=== PATIENT | male | born 1945 | race Caucasian/White ===

== ENCOUNTER 2019-12-18 10:39 | Outpatient (REF) | payer MEDICARE, SELFPAY ==
[2019-12-18 11:59] LABS: MANUAL DIFF FLAG NO
[2019-12-18 12:10] LABS: Basophils Percent Auto 0.9 % (0-2); Eosinophils Absolute Auto 0.2 X10*3/uL (0.0-0.4); Eosinophils Percent Auto 4.9 % (0-4); Hematocrit 43.8 % (42-52); Hemoglobin 14.3 g/dl (14.0-18.0); Lymphocytes Absolute Auto 1.4 X10*3/uL (1.2-4.9); Lymphocytes Percent Auto 29.2 % (20-40); Mean Corpuscular HGB Conc 32.6 g/dl (31.0-36.0); Mean Corpuscular Hemoglobin 28.9 pg (27.0-33.0); Mean Corpuscular Volume 88.5 fL (80-98); Mean Platelet Volume 11.2 fL (9.4-12.4); Monocytes Absolute Auto 0.3 X10*3/uL (0.1-1.2); Monocytes Percent Auto 7.1 % (2-11); Neutrophils Absolute Auto 2.7 X10*3/uL (2.0-8.3); Neutrophils Percent Auto 57.9 % (45-73); Platelet Count 169 X10*3/uL (160-400); Red Blood Count 4.95 X10*6/uL (4.60-5.80); Red Cell Distribution Width 14.7 % (11.0-16.0); White Blood Count 4.7 X10*3/uL (4.8-10.8)
[2019-12-18 12:14] LABS: Glucose Urine UA NEG (NEG); Leukocyte Esterase Urine NEG (NEG); Nitrite Urine NEG (NEG); Urine Blood NEG (NEG); Urine Ketones NEG (NEG); Urine Protein NEG (NEG-TRACE)
[2019-12-18 12:17] LABS: Appearance Urine CLEAR; Color Urine YELLOW
[2019-12-18 12:28] LABS: RBC Urine 0 /HPF (0); WBC Urine 0 /HPF (0-4)
[2019-12-18 12:38] LABS: Creatinine Urine 49.72 mg/dL; Microalbum/Creatinine Ratio Ur 235.3 ug/mg cr
[2019-12-18 12:44] LABS: Estimated Average Glucose 108 mg/dL; Hemoglobin A1c % 5.4 %
[2019-12-18 12:57] LABS: Prostate Specific Antigen 0.33 ng/mL (<0.05-4.0)
[2019-12-18 12:58] LABS: Alanine Aminotransferase 21 U/L (0-40); Albumin Level 4.2 g/dL (3.5-5.0); Alkaline Phosphatase 80 U/L (39-117); Anion Gap 12 (12-20); Aspartate Amino Transferase 22 U/L (5-37); Bilirubin Total 0.8 mg/dL (0.0-1.0); Blood Urea Nitrogen 19 mg/dL (9-16); Calcium 9.2 mg/dL (8.4-10.2); Carbon Dioxide 24 mmol/L (22-29); Chloride 106 mmol/L (96-108); Cholesterol 169 mg/dL; Estimated Glomerular Filt Rate > 60; Glucose Fasting 82 mg/dL (60-99); HDL Cholesterol 68 mg/dL; LDL Cholesterol Calculated 86 mg/dl; Potassium 4.3 mmol/l (3.3-5.1); Sodium 138 mmol/L (135-145); Thyroid Stimulating Hormone 2.05 mIU/mL (0.32-4.0); Total Protein 6.9 g/dL (6.5-8.0); Triglycerides 76 mg/dL
== END 2019-12-18 10:40 | disposition home or self-care (01) ==
LOC: HO.LAB 10:39
PROVIDERS: PCP Internal Medicine; Visit Provider Urology
DX: N20.0 Calculus of kidney (principal); I44.2 Atrioventricular block, complete; E11.9 Type 2 diabetes mellitus without complications; I10 Essential (primary) hypertension; G47.33 Obstructive sleep apnea (adult) (pediatric); N21.0 Calculus in bladder; E03.9 Hypothyroidism, unspecified; Z12.5 Encounter for screening for malignant neoplasm of prostate
CPT/HCPCS: 36415; 80053; 80061; 81001; 82043; 83036; 84153; 84443; 85025

== ENCOUNTER 2020-04-10 09:29 | Outpatient (REF) | payer MEDICARE, SELFPAY ==
[2020-04-10 11:57] LABS: Alanine Aminotransferase 19 U/L (0-40); Albumin Level 4.2 g/dL (3.5-5.0); Alkaline Phosphatase 76 U/L (39-117); Anion Gap 13 (12-20); Aspartate Amino Transferase 21 U/L (5-37); Bilirubin Total 0.5 mg/dL (0.0-1.0); Blood Urea Nitrogen 24 mg/dL (9-16); Calcium 9.4 mg/dL (8.4-10.2); Carbon Dioxide 26 mmol/L (22-29); Chloride 104 mmol/L (96-108); Cholesterol 132 mg/dL; Estimated Glomerular Filt Rate > 60; Glucose Fasting 90 mg/dL (60-99); HDL Cholesterol 66 mg/dL; LDL Cholesterol Calculated 56 mg/dl; Potassium 4.6 mmol/L (3.3-5.1); Sodium 138 mmol/L (135-145); Total Protein 6.8 g/dL (6.5-8.0); Triglycerides 54 mg/dL
[2020-04-10 12:05] LABS: Creatinine Urine 62.16 mg/dL
[2020-04-10 13:03] LABS: Estimated Average Glucose 108 mg/dL; Hemoglobin A1c % 5.4 %
== END 2020-04-10 09:30 | disposition home or self-care (01) ==
LOC: HO.HMGCLDS 09:29
PROVIDERS: PCP Internal Medicine; Visit Provider Internal Medicine
DX: E11.9 Type 2 diabetes mellitus without complications (principal); I10 Essential (primary) hypertension; E03.9 Hypothyroidism, unspecified; N21.0 Calculus in bladder
CPT/HCPCS: 36415; 80053; 80061; 82043; 83036

== ENCOUNTER → 2020-04-15 12:39 | Outpatient (BNVA) | payer MEDICARE, SELFPAY | PROVIDERS: PCP Internal Medicine; Visit Provider Internal Medicine Cardiovascular Disease | DX: I45.10 Unspecified right bundle-branch block (principal); I44.2 Atrioventricular block, complete; I10 Essential (primary) hypertension; Z95.0 Presence of cardiac pacemaker | CPT/HCPCS: 93005; 99212 ==

== ENCOUNTER → 2020-10-01 13:57 | Outpatient (BNVA) | payer OTHER, SELFPAY | PROVIDERS: PCP Internal Medicine; Visit Provider Internal Medicine Cardiovascular Disease | DX: I45.10 Unspecified right bundle-branch block (principal); I10 Essential (primary) hypertension; Z95.0 Presence of cardiac pacemaker | CPT/HCPCS: 93005; 99212 ==

== ENCOUNTER 2021-01-14 10:28 | Outpatient (REF) | payer MEDICARE, SELFPAY ==
[2021-01-14 13:49] LABS: Appearance Urine CLOUDY; Color Urine STRAW; Glucose Urine UA NEG (NEG); Leukocyte Esterase Urine NEG (NEG); Nitrite Urine NEG (NEG); PH 5.5 (5.0-8.0); Specific Gravity - Urine 1.025 (1.005-1.025); Urine Blood NEG (NEG); Urine Ketones NEG (NEG); Urine Protein 1+ MG/DL (NEG-TRACE)
[2021-01-14 13:58] LABS: MANUAL DIFF FLAG NO
[2021-01-14 14:00] LABS: RBC Urine 0 /HPF (0); Squamous Epithelial Cell Urine TRACE /LPF; WBC Urine 0 /HPF (0-4)
[2021-01-14 14:01] LABS: Amorphous Sediment Urine 4+ /LPF
[2021-01-14 14:03] LABS: Basophils Absolute Auto 0.1 X10*3/uL (0.0-0.2); Eosinophils Absolute Auto 0.2 X10*3/uL (0.0-0.4); Hematocrit 43.4 % (42.0-52.0); Hemoglobin 14.1 g/dl (14.0-18.0); Imm Gran Abs Auto 0.01 X10*3/uL (0.00-0.03); Imm Gran Pct Auto 0.2 % (0.0-0.4); Lymphocytes Absolute Auto 1.5 X10*3/uL (1.2-4.9); Lymphocytes Percent Auto 28.9 % (20-40); Mean Corpuscular HGB Conc 32.5 g/dl (31.0-36.0); Mean Corpuscular Hemoglobin 28.8 pg (27.0-33.0); Mean Corpuscular Volume 88.8 fL (80.0-98.0); Mean Platelet Volume 11.8 fL (9.4-12.4); Monocytes Absolute Auto 0.5 X10*3/uL (0.1-1.2); Monocytes Percent Auto 8.7 % (2-11); Neutrophils Percent Auto 57.2 % (45-73); Platelet Count 161 X10*3/uL (160-400); Red Blood Count 4.89 X10*6/uL (4.60-5.80); Red Cell Distribution Width 14.6 % (11.0-16.0); White Blood Count 5.3 X10*3/uL (4.8-10.8)
[2021-01-14 14:13] LABS: Estimated Average Glucose 108 mg/dL; Hemoglobin A1c % 5.4 %
[2021-01-14 14:18] LABS: Alanine Aminotransferase 22 U/L (0-40); Albumin Level 4.5 g/dL (3.5-5.0); Alkaline Phosphatase 78 U/L (39-117); Anion Gap 11 (12-20); Aspartate Amino Transferase 21 U/L (5-37); Bilirubin Total 0.7 mg/dL (0.0-1.0); Blood Urea Nitrogen 26 mg/dL (9-16); Calcium 10.4 mg/dL (8.4-10.2); Carbon Dioxide 26 mmol/L (22-29); Chloride 106 mmol/L (96-108); Cholesterol 144 mg/dL; Estimated Glomerular Filt Rate 59; Glucose Fasting 97 mg/dL (60-99); HDL Cholesterol 71 mg/dL; LDL Cholesterol Calculated 61 mg/dl; Potassium 4.9 mmol/L (3.3-5.1); Sodium 138 mmol/L (135-145); Total Protein 7.2 g/dL (6.5-8.0); Triglycerides 64 mg/dL
[2021-01-14 14:24] LABS: Creatinine Urine 86.77 mg/dL; Microalbum/Creatinine Ratio Ur 215.5 ug/mg cr
[2021-01-14 14:42] LABS: Thyroid Stimulating Hormone 1.41 uIU/mL (0.32-4.0)
[2021-01-15 13:50] LABS: Free Prostate Spec Ag 0.1 ng/mL; Percent Free Prostate Spec Ag 33 % (calc) (>25); Prostate Specific Ag Total 0.3 ng/mL (< OR = 4.0)
== END 2021-01-14 10:29 | disposition home or self-care (01) ==
LOC: HO.HMGCLDS 10:28
PROVIDERS: PCP Internal Medicine; Visit Provider Internal Medicine
DX: E11.9 Type 2 diabetes mellitus without complications (principal); I10 Essential (primary) hypertension; E03.9 Hypothyroidism, unspecified; Z12.5 Encounter for screening for malignant neoplasm of prostate
CPT/HCPCS: 36415; 80053; 80061; 81001; 82043; 83036; 84154; 84443; 85025

== ENCOUNTER → 2021-04-05 10:03 | Outpatient (BNVA) | payer OTHER, SELFPAY | PROVIDERS: PCP Internal Medicine; Visit Provider Internal Medicine Cardiovascular Disease | DX: I44.2 Atrioventricular block, complete (principal); I45.10 Unspecified right bundle-branch block; I10 Essential (primary) hypertension; Z95.0 Presence of cardiac pacemaker | CPT/HCPCS: 93005 ==

== ENCOUNTER 2021-07-13 11:14 | Outpatient (REF) | payer MEDICARE, SELFPAY ==
[2021-07-13 12:46] LABS: Estimated Average Glucose 117 mg/dL; Hemoglobin A1c % 5.7 %
[2021-07-13 13:02] LABS: Alanine Aminotransferase 23 U/L (0-40); Albumin Level 4.3 g/dL (3.5-5.0); Alkaline Phosphatase 87 U/L (39-117); Anion Gap 15 (12-20); Aspartate Amino Transferase 21 U/L (5-37); Bilirubin Total 0.3 mg/dL (0.0-1.0); Blood Urea Nitrogen 23 mg/dL (9-16); Calcium 9.8 mg/dL (8.4-10.2); Carbon Dioxide 21 mmol/L (22-29); Chloride 106 mmol/L (96-108); Estimated Glomerular Filt Rate > 60; Glucose Fasting 102 mg/dL (60-99); Potassium 4.7 mmol/L (3.3-5.1); Sodium 137 mmol/L (135-145); Total Protein 6.9 g/dL (6.5-8.0)
== END 2021-07-13 11:15 | disposition home or self-care (01) ==
LOC: HO.LAB 11:14
PROVIDERS: Absent Provider Internal Medicine; PCP Internal Medicine; Visit Provider Internal Medicine
DX: Z00.00 Encounter for general adult medical examination without abnormal findings (principal); E11.9 Type 2 diabetes mellitus without complications; E03.9 Hypothyroidism, unspecified; I10 Essential (primary) hypertension
CPT/HCPCS: 36415; 80053; 83036

== ENCOUNTER → 2021-08-30 10:27 | Outpatient (REF) | payer MEDICARE, SELFPAY ==
--- NOTE | 2021-08-30 10:32 | CA_ITS ---
Transthoracic Echocardiogram Patient (Last, First, Middle): Pollo Arevalo A Gender: Male Date of : 1945 Age: 76 Procedure Date: 08/30/2021 Procedure Type: Transthoracic Echocardiogram Location: OP Height: 172.72 cm Weight: 89.36 kg BSA: 2.03 m2 Heart Rate: 64 bpm BP: 150 / 70 mmHg Conservation Officer: SB Referring MD: Flip Jain MD Symptoms: I44.2 - Atrioventricular block, complete Study Quality: Adequate ECG Rhythm: Sinus Conclusions: - The left ventricular systolic function is normal. The calculated ejection fraction is 57% by biplane method. - No obvious valvular pathology seen on this study. Findings Left Ventricle Normal left ventricular cavity size. There is moderately increased left ventricular wall thickness. The left ventricular systolic function is normal. The calculated ejection fraction is 57% by biplane method. There is no evidence of regional wall motion abnormalities. E/E prime ratio is >15, consistent with elevated filling pressures. Evidence suggests grade I (mild) diastolic dysfunction. Right Ventricle Normal right ventricular cavity size and systolic function. Atria Both atria are normal in size. Aortic Valve There is a normal trileaflet aortic valve. There is no aortic valve stenosis. There is no aortic valve regurgitation. Mitral Valve There is mild mitral annular calcification. There is no mitral valve regurgitation. There is no mitral valve stenosis. Pulmonic Valve The pulmonic valve is likely normal. Tricuspid Valve Normal tricuspid valve structure. There is trace tricuspid valve regurgitation. The pulmonary artery systolic pressure is normal. Great Vessels The asc aorta is normal in size. Small plaque is seen in the sino tubular ridge. Venous The inferior vena cava is normal in size and collapses greater than 50% with inspiration. Pericardium/Pleural There is no evidence of pericardial effusion. Prior Study Comparison No prior study available for comparison. Recommendations, Care & Conclusions No obvious valvular pathology seen on this study. Measurements 2D Linear Measurements IVSd: 1.45 0.6-0.9/0.6-1.0 cm LVIDd: 4.35 3.9-5.3/4.2-5.9 cm LVIDd Index: 2.14 2.4-3.2/2.2-3.1 cm/m2 LVIDs: 2.86 2.0-3.6 cm LVPWd: 1.29 0.7-1.1 cm LA Diam: 4.30 2.7-3.8/3.0-4.0 cm LAIDs Index: 2.12 1.5-2.3 cm/m2 LV Mass: 285.05 67-162/88-224 g LV Mass Index: 140.42 43-95/49-115 g/m2 LVOT Diam: 2.10 3.0+(-)1.3 cm 2D Systolic Function EF 4C: 65.50 >55% EF 2C: 47.30 >55% EF BiP: 57.00 >55% Mitral Valve MV Pk E: 0.78 MV PK A: 1.11 MV Decel Time: 329.00 E/A: 0.70 E'Lateral: 5.66 E'Medial: 4.03 E/E' Med: 19.50 E/E' Lat: 13.90 PHT: 96.00 MVA PHT: 2.29 Decel Amador: 2.38 Aortic Valve AoV Pk Ranjeet: 1.47 AoV Mn Ranjeet: 1.06 AoV VTI: 0.29 AoV Pk Grad: 9.00 Aov Mn Grad: 5.00 MICKEY Cont.VTI: 3.03 LVOT LVOT Pk Ranjeet: 1.20 LVOT Mn Ranjeet: 0.87 LVOT VTI: 0.25 LVOT Pk Grad: 6.00 LVOT Mn Grad: 4.00 LVOT Diam: 2.10 LVOT Area: 3.46 Diastolic Function MV Pk E: 0.78 MV Pk A: 1.11 E/A: 0.70 E'Medial: 4.03 E/E' Med: 19.50 E' Laterial: 5.66 E/E' Lat: 13.90 Right Ventricle TAPSE (mm): 20.30 TVS' Ranjeet: 9.70 Tricuspid Valve TR Pk Ranjeet: 2.32 TR Pk Grad: 22.00 RA Press: 3.00 RVSP: 25.00 Great Vessels Aorta Sinus of Valsalva: 3.50 2.0-3.5 cm Ao Asc: 3.40 2.1-3.4 cm Pulmonary Valve PV Pk Ranjeet: 1.18 Peak PV Grad: 6.00 Updated in Other Vendor System with Status of Final Kev Carlton MD electronically signed on 09/01/2021 5:28:05 PM with status of Final
== END ==
LOC: HO.CARD 10:27
PROVIDERS: PCP Internal Medicine; Visit Provider Internal Medicine Cardiovascular Disease
DX: I44.2 Atrioventricular block, complete (principal)
CPT/HCPCS: 93306

== ENCOUNTER → 2021-09-13 10:48 | Outpatient (BNVA) | payer MEDICARE, SELFPAY | PROVIDERS: PCP Internal Medicine; Referring Provider Internal Medicine; Visit Provider Internal Medicine Cardiovascular Disease | DX: I10 Essential (primary) hypertension (principal); I45.10 Unspecified right bundle-branch block; Z95.0 Presence of cardiac pacemaker | CPT/HCPCS: 93005; 99212 ==

== ENCOUNTER → 2022-03-24 10:52 | Outpatient (BNVA) | payer OTHER, SELFPAY | PROVIDERS: PCP Internal Medicine; Referring Provider Internal Medicine; Visit Provider Internal Medicine Cardiovascular Disease | DX: I10 Essential (primary) hypertension (principal); I44.2 Atrioventricular block, complete; Z87.891 Personal history of nicotine dependence; Z95.0 Presence of cardiac pacemaker | CPT/HCPCS: 99212 ==

== ENCOUNTER → 2022-09-07 11:07 | Outpatient (BNVA) | payer OTHER, SELFPAY | PROVIDERS: PCP Internal Medicine; Visit Provider Internal Medicine Cardiovascular Disease | DX: I45.2 Bifascicular block (principal); I10 Essential (primary) hypertension; E87.5 Hyperkalemia; Z95.0 Presence of cardiac pacemaker; Z79.82 Long term (current) use of aspirin; Z79.84 Long term (current) use of oral hypoglycemic drugs; Z79.899 Other long term (current) drug therapy | CPT/HCPCS: 93005; 99212 ==

== ENCOUNTER → 2022-10-03 23:59 | Outpatient (BNV) | payer OTHER, SELFPAY ==
--- NOTE | 2022-10-17 09:37 | MHC.OFFVIS ---
Intake Intake Visit Reasons: Remote Device Check- [place] [facility] Allergies lisinopril Allergy (Unknown, Verified 09/07/22 11:19) cough oxycodone Allergy (Unknown, Verified 09/07/22 11:19) urticaria PFSH Surgical History History of toe surgery Hx of colonoscopy Pacemaker Family History Mother Lung cancer Father Brain aneurysm Brother Prostate cancer Sister Diabetes Social History Alcohol intake: current Alcohol intake frequency: a few times a week Alcohol type: hard liquor Patient Tobacco Use Status: Former Tobacco user Quit Date: Years Smoked: 20+ Coding Level of Care Code Procedure Only Diagnoses
--- NOTE | 2022-10-25 20:40 | MHC.OFFVIS ---
Intake Intake Visit Reasons: Remote Device Check- [place] [facility] Allergies lisinopril Allergy (Unknown, Verified 09/07/22 11:19) cough oxycodone Allergy (Unknown, Verified 09/07/22 11:19) urticaria PFSH Surgical History History of toe surgery Hx of colonoscopy Pacemaker Family History Mother Lung cancer Father Brain aneurysm Brother Prostate cancer Sister Diabetes Social History Alcohol intake: current Alcohol intake frequency: a few times a week Alcohol type: hard liquor Patient Tobacco Use Status: Former Tobacco user Quit Date: Years Smoked: 20+ Office Procedures Cardiac Device Check Cardiac Device Check Details: PPM Good battery life No new alerts. 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 [id number] Cardiac Device Interrogation, pacemaker Procedure code (CPT) selection complete Assessment & Plan Assessment & Plan (1) Pacemaker: Code(s): Z95.0 - Presence of cardiac pacemaker Coding Level of Care Code Procedure Only Diagnoses Pacemaker Z95.0 CPT Codes Cardiac Device Check - Cardiac Device 12: [id number] Cardiac Device Interrogation, pacemaker ([id number])
== END ==
PROVIDERS: PCP Internal Medicine; Visit Provider Internal Medicine Cardiovascular Disease
DX: I44.2 Atrioventricular block, complete (principal); Z95.0 Presence of cardiac pacemaker
CPT/HCPCS: 93294

== ENCOUNTER → 2023-01-02 23:59 | Outpatient (BNV) | payer OTHER, SELFPAY ==
--- NOTE | 2023-01-05 11:54 | A.OFFVIS_ITS ---
Intake Intake Visit Reasons: Remote Device Check- [facility] Allergies lisinopril Allergy (Unknown, Verified 09/07/22 11:19) cough oxycodone Allergy (Unknown, Verified 09/07/22 11:19) urticaria PFSH Surgical History History of toe surgery Hx of colonoscopy Pacemaker Family History Mother Lung cancer Father Brain aneurysm Brother Prostate cancer Sister Diabetes Social History Alcohol intake: current Alcohol intake frequency: a few times a week Alcohol type: hard liquor Patient Tobacco Use Status: Former Tobacco user Quit Date: Years Smoked: 20+ Office Procedures Cardiac Device Check Cardiac Device Check Details: PPM Battery life 4 years. V-paced 100%. Episodes of PMT recorded in Nov and Dec. [id number] Cardiac Device Interrogation, pacemaker Procedure code (CPT) selection complete Assessment & Plan Assessment & Plan (1) Pacemaker: Code(s): Z95.0 - Presence of cardiac pacemaker Orders: Orders AMB Cardiac Device Follow-up 01/02/23 Z95.0 - Presence of cardiac pacemaker Coding Level of Care Code Procedure Only Diagnoses Pacemaker Z95.0 CPT Codes Cardiac Device Check - Cardiac Device 12: [id number] Cardiac Device In [facility], pacemaker ([id number])
== END ==
PROVIDERS: PCP Internal Medicine; Visit Provider Internal Medicine Cardiovascular Disease
DX: I44.2 Atrioventricular block, complete (principal); Z95.0 Presence of cardiac pacemaker
CPT/HCPCS: 93294

== ENCOUNTER 2023-01-23 10:50 | Outpatient (REF) | payer MEDICARE, SELFPAY ==
[2023-01-23 11:20] LABS: MANUAL DIFF FLAG NO
[2023-01-23 11:51] LABS: Basophils Percent Auto 0.5 % (0-2); Eosinophils Percent Auto 0.2 % (0-4); Hematocrit 43.1 % (42.0-52.0); Hemoglobin 13.9 g/dl (14.0-18.0); Imm Gran Abs Auto 0.02 X10*3/uL (0.00-0.03); Imm Gran Pct Auto 0.4 % (0.0-0.4); Lymphocytes Absolute Auto 0.6 X10*3/uL (1.2-4.9); Lymphocytes Percent Auto 10.2 % (20-40); Mean Corpuscular HGB Conc 32.3 g/dl (31.0-36.0); Mean Corpuscular Hemoglobin 29.3 pg (27.0-33.0); Mean Corpuscular Volume 90.9 fL (80.0-98.0); Mean Platelet Volume 11.2 fL (9.4-12.4); Monocytes Absolute Auto 0.5 X10*3/uL (0.1-1.2); Monocytes Percent Auto 8.4 % (2-11); Neutrophils Absolute Auto 4.4 x10*3/uL (2.0-8.3); Neutrophils Percent Auto 80.3 % (45-73); Platelet Count 156 X10*3/uL (160-400); Red Blood Count 4.74 X10*6/uL (4.60-5.80); Red Cell Distribution Width 13.2 % (11.0-16.0); White Blood Count 5.5 X10*3/uL (4.8-10.8)
[2023-01-23 11:58] LABS: Appearance Urine Clear; Color Urine Yellow; Glucose Urine UA Negative (Negative); Leukocyte Esterase Urine Negative (Negative); Nitrite Urine Negative (Negative); PH 5.5 (5.0-9.0); UMIC TRIGGER UA YES; Urine Blood Negative (Negative); Urine Ketones Negative (Negative); Urine Protein 100 (2+) mg/dL (Neg-Trace)
[2023-01-23 12:01] LABS: Bacteria Urine None Seen (None Seen); Hyaline Casts Urine 0-2 /LPF (0-2); RBC Urine 0-2 /HPF (0-2); Squamous Epithelial Cell Urine 0-2 /HPF (0-2); WBC Urine 0-5 /HPF (0-5)
[2023-01-23 12:23] LABS: Estimated Average Glucose 114 mg/dL; Hemoglobin A1c % 5.6 % (<6.0)
[2023-01-23 12:46] LABS: PSA,Total (Free>4and<10) 0.55 ng/mL (0.00-4.00)
[2023-01-23 12:56] LABS: Alanine Aminotransferase 30 U/L (0-40); Albumin Level 4.5 g/dL (3.5-5.0); Alkaline Phosphatase 78 U/L (39-117); Anion Gap 12 (12-20); Aspartate Amino Transferase 25 U/L (5-37); Bilirubin Total 0.5 mg/dL (0.0-1.0); Blood Urea Nitrogen 23 mg/dL (9-16); Calcium 9.9 mg/dL (8.4-10.2); Carbon Dioxide 23 mmol/L (22-29); Chloride 106 mmol/L (96-108); Cholesterol 125 mg/dL (<200); Estimated Glomerular Filt Rate 45; Glucose Fasting 125 mg/dL (60-99); HDL Cholesterol 56 mg/dL (>40); LDL Cholesterol Calculated 47 mg/dL (<100); Potassium 4.9 mmol/L (3.3-5.1); Sodium 136 mmol/L (135-145); Total Protein 7.5 g/dL (6.5-8.0); Triglycerides 111 mg/dL (<150)
[2023-01-23 12:59] LABS: Creatinine Urine 99.74 mg/dL; Microalbum/Creatinine Ratio Ur 290.7 ug/mg cr (<30)
[2023-01-23 13:16] LABS: Thyroid Stimulating Hormone 1.26 uIU/mL (0.32-4.0); Vitamin D 25-OH Total 38.6 ng/mL (>30)
== END 2023-01-23 10:51 | disposition home or self-care (01) ==
LOC: HO.LAB 10:50
PROVIDERS: PCP Internal Medicine; Visit Provider Internal Medicine
DX: Z00.00 Encounter for general adult medical examination without abnormal findings (principal); E11.9 Type 2 diabetes mellitus without complications; I10 Essential (primary) hypertension; E03.9 Hypothyroidism, unspecified; I44.2 Atrioventricular block, complete; N21.0 Calculus in bladder; Z12.5 Encounter for screening for malignant neoplasm of prostate
CPT/HCPCS: 36415; 80053; 80061; 81001; 82043; 82306; 82570; 83036; 84153; 84443; 85025

== ENCOUNTER 2023-02-06 11:24 | Outpatient (AMB) | payer OTHER, SELFPAY ==
[2023-02-06 11:48] VITALS: BMI 29.8
--- NOTE | 2023-02-06 11:48 | A.OFFVIS_ITS ---
Intake VS Expanded 02/06/23 11:48 02/15/23 11:05 Height 5 ft 8 in 5 ft 8 in Weight 196 lb 3.382 oz 196 lb BMI 29.8 29.8 Intake Visit Reasons: Hyperkalemia Allergies lisinopril Allergy (Unknown, Verified 09/07/22 11:19) cough oxycodone Allergy (Unknown, Verified 09/07/22 11:19) urticaria HPI Nutrition Presentation Details Pt presents for MNT for hyperkalemia. Pt was referred by Dr. Audra Jain, seed technician at [facility] [place] Pt reports he is increasing his intake of vegetables in his diet and this may be causing elevated K level Typical meal intake B: 2 cup glass of milk stir fried vegetables (mixed vegetables) 2 cup s with 1-2 potatoes home fried L: green salad with fruit and olive oil or Egyptian dressing, glass of milk D: lentil soup ,and rice , glass of milk snack on chips , fruit , crackers wth p.b fluids: water, milk , soup average 64 oz fluid/d protein foods: beans/legumes, milk (48 -55 g /day) vegetables> 6 serving/d fruits 2-3 /d starches > 10 serving/d physical activity: daily life activities CVL-Otgvpfd-Rz.Jeor Equation Height 5 ft 8 in Weight 196 lb Resting Metabolic Rate 1598.73 Calculated Activity Level Mild Activity Calories Needed to Maintain Weight 2198.25 Diagnosis Nutrition problem #1 altered nutrition labs As related to (etiology) #1 lack of nutrit education As evidenced by (sign/symptom) #1 no prior educ - nutri rec Most Recent Diabetes Results: Microalb/Creat Ratio 290.7 ug/mg cr (<30) H 01/23/23 Cholesterol 125 mg/dL (<200) 01/23/23 HDL Cholesterol 56 mg/dL (>40) 01/23/23 Triglycerides 111 mg/dL (<150) 01/23/23 Creatinine 1.52 mg/dL (0.5-1.4) H 01/23/23 Blood Urea Nitrogen 23 mg/dL (9-16) H 01/23/23 Sodium 136 mmol/L (135-145) 01/23/23 Potassium 4.9 mmol/L (3.3-5.1) 01/23/23 Chloride 106 mmol/L (96-108) 01/23/23 Carbon Dioxide 23 mmol/L (22-29) 01/23/23 Calcium 9.9 mg/dL (8.4-10.2) 01/23/23 AST 25 U/L (5-37) 01/23/23 ALT 30 U/L (0-40) 01/23/23 Total Protein 7.5 g/dL (6.5-8.0) 01/23/23 Albumin 4.5 g/dL (3.5-5.0) 01/23/23 PFSH Surgical History History of toe surgery Hx of colonoscopy Pacemaker Family History Mother Lung cancer Father Brain aneurysm Brother Prostate cancer Sister Diabetes Social History Alcohol intake: current Alcohol intake frequency: a few times a week Alcohol type: hard liquor Patient Tobacco Use Status: Former Tobacco user Quit Date: Years Smoked: 20+ Assessment & Plan Assessment & Plan (1) Hyperkalemia: Code(s): E87.5 - Hyperkalemia Plan: wt: 89 kg Est kcal needs as per MSJ: 2200 (40% carb, 30% protein/fat) Est fluid needs as per 30 ml/d: 2700 Est prot per day as per 1 g/kg bw: 89g Recommend fiber intake : 8-10 g per day and gradually increase to 25-28 g per day for women and 35-38 g for men or as tolerated Recommend sodium intake per day : less than 2000 mg Educated patient on: ( R = reviewed V = verbalizes understanding N/R = needs review N/A = not applicable * Healthy plate method concept: R * Variety of foods /foods choices: R * low potassium sources of foods :R * lean protein sources of foods (plant/animal sources) : R * Physical activity: Benefits a precaution: R Patient Instructions: Work on having 3 balanced meals per day following healthy plate method, Include a variety of foods Example : include lean protein at breakfast ( 2 boiled eggs as example) , reduce on portion of the vegetables (starchy and non starchy) by 1/2 cup less see meal ideas, incorporating a variety of foods following the healthy plate method Refer to list of low potassium food choices as reference Coding Level of Care Code Nutr Indiv Intake (10329) Diagnoses Hyperkalemia E87.5 Time Spent (min) 30
[2023-02-15 11:05] VITALS: BMI 29.8
== END 2023-02-06 12:27 | disposition home or self-care (01) ==
PROVIDERS: PCP Internal Medicine; Visit Provider Dietitian, Registered
DX: E87.5 Hyperkalemia (principal)

== ENCOUNTER → 2023-02-06 11:24 | Outpatient (BNVA) | payer OTHER, SELFPAY | PROVIDERS: PCP Internal Medicine; Visit Provider Dietitian, Registered | DX: E87.5 Hyperkalemia (principal); Z71.3 Dietary counseling and surveillance | CPT/HCPCS: 97802 ==

== ENCOUNTER 2023-03-13 10:41 | Outpatient (AMB) | payer OTHER, SELFPAY ==
[2023-03-13 11:09] VITALS: BP 124/72; PULSE 70; BMI 29.9
--- NOTE | 2023-03-13 11:09 | MHC.OFFVIS ---
Intake Vital Signs 03/13/23 11:09 Height 5 ft 8 in Weight 196 lb 10.437 oz BMI 29.9 BP 124/72 Blood Pressure Location Lt brachial Position Sitting Pulse 70 Pulse Source Pulse Oximeter Intake Visit Reasons: 6 mth f/up [place] Hand Required: No Allergies lisinopril Allergy (Unknown, Verified 03/13/23 11:12) cough oxycodone Allergy (Unknown, Verified 03/13/23 11:12) urticaria Medication List - Last Reconciled 03/13/23 by Flip Jain MD amlodipine 5 mg PO DAILY aspirin (Adult Low Dose Aspirin) 81 mg PO DAILY clobetasol 0.05% 1 appl topical DAILY finasteride 5 mg PO DAILY levothyroxine 50 mcg PO DAILY losartan 100 mg PO DAILY metformin 1,000 mg PO BID naproxen 250 mg PO BID PRN rosuvastatin 40 mg PO DAILY spironolactone 12.5 mg PO DAILY tamsulosin 0.4 mg PO DAILY vitamins A,C,W-mojh-esspio 4,296 mcg-226 mg-90 mg (PreserVision AREDS) 1 cap PO BID HPI HPI Comments History of Present Illness Details 77-year-old gentleman here for follow-up. He has background history of hypertension and complete heart block for which he had permanent pacemaker placed at [facility]. He was also diagnosed with Lyme disease and was told that potentially the heart block was due to Lyme disease. He continues to do well. He has no chest discomfort. Denies any dyspnea. Blood pressure control is good. Last device check he was 100 % V-paced. 09/07/22: He is here for follow-up. He has been active and has no exertional symptoms. He has been adjusting his diet because he had blood workup done at [facility] where his potassium was noticed to be initially 5.2 and then 4.5. He has been taking losartan 100 mg and spironolactone 12.5 mg once a day. He is saying his diet includes a lot of vegetables and fruits and significant potassium intake. He feels that changing his diet will be a problem and is asking whether he can be referred to a dietitian. I have reviewed his medications and obviously being on spironolactone and losartan can raise the potassium. His potassium was 5.2 and repeat was 4.5. 03/13/2023: He returns for follow-up. On last visit he was advised to stop the spironolactone given the fact that he had hyperkalemia. It appears he saw his primary care physician and was referred to dietitian and was advised to cut back on a lot of vegetables that he likes to eat. His back and is saying that he is taking spironolactone. Blood pressure is well controlled. No other concerns. [facility] Surgical History History of toe surgery Pacemaker Hx of colonoscopy Family History Mother Lung cancer Father Brain aneurysm Brother Prostate cancer Sister Diabetes Social History Alcohol intake: current Alcohol intake frequency: a few times a week Alcohol type: hard liquor Patient Tobacco Use Status: Former Tobacco user Quit Date: Years Smoked: 20+ Review of Systems ENT Reports dizziness Card Denies chest pain, Denies chest pain at rest, Denies chest pain with activity, Denies rapid heart rate, Denies pedal edema, Denies edema, Denies leg edema, Denies lightheadedness, Denies palpitations, Denies dyspnea, Denies dyspnea on exertion and Denies orthopnea Resp Denies cough, Denies dyspnea and Denies dyspnea on exertion GI Denies hematochezia and Denies change in stool character Musc Denies abnormal gait, Reports limited range of motion, Reports muscle cramps, Denies muscle weakness, Denies numbness, Denies radiating pain into limb, Denies stiffness and Denies tingling Neuro Denies abnormal gait, Reports dizziness, Denies numbness and Denies tingling Endo Denies palpitations Physical Exam Vital Signs: Last Vital Signs Pulse 70 03/13/23 11:09 BP 124/72 03/13/23 11:09 BMI result Body Mass Index 29.9 GENERAL APPEARANCE: in no acute distress, pleasant. NECK: no carotid bruit, no jugular venous distention. SKIN: no suspicious lesions, warm and dry. HEART: no murmurs, regular rate and rhythm. LUNGS: clear to auscultation bilaterally. ABDOMEN: soft, nontender. EXTREMITIES: no edema. PERIPHERAL PULSES: equal. NEUROLOGIC: No gross deficits, AAO X 3 Assessment & Plan Assessment & Plan (1) Hypertension: Comment: Stable Code(s): I10 - Essential (primary) hypertension Qualifiers: Hypertension type: essential hypertension Qualified Code(s): I10 - Essential (primary) hypertension (2) Pacemaker: Code(s): Z95.0 - Presence of cardiac pacemaker Plan Pleasant 77 year gentleman with background history of complete heart block status post pacemaker. Device interrogation was done recently with some reprogramming because he was getting PMT. Blood pressure is well controlled. He had some issues with hyperkalemia previously and I advised him to hold spironolactone but it appears that he had a discussion with his primary care physician and decided to see a dietitian and continue spironolactone. He is saying that he angina eating a lot of vegetables but he can not eat them anymore. I am not sure whether spironolactone is given for hypokalemia in the past or not. In any case he has an option to hold spironolactone if he wishes to and monitor his blood pressure, unless it was prescribed for hypokalemia. He will discuss with his primary care physician further. Overall clinically stable. Will see us back in 6 months. Thank you for allowing me to participate in the care of your patient. Please feel free to contact me if you have any questions. Coding Level of Care Code Est Pt Level 4 (65835) Diagnoses Essential hypertension I10 Hypertension type: essential hypertension Pacemaker Z95.0
== END 2023-03-13 11:38 | disposition home or self-care (01) ==
PROVIDERS: PCP Internal Medicine; Referring Provider Internal Medicine; Visit Provider Internal Medicine Cardiovascular Disease
DX: I10 Essential (primary) hypertension (principal); Z95.0 Presence of cardiac pacemaker
CPT/HCPCS: 99214

== ENCOUNTER → 2023-03-13 10:41 | Outpatient (BNVA) | payer OTHER, SELFPAY | PROVIDERS: PCP Internal Medicine; Visit Provider Internal Medicine Cardiovascular Disease | DX: I10 Essential (primary) hypertension (principal); Z95.0 Presence of cardiac pacemaker | CPT/HCPCS: 99212 ==

== ENCOUNTER → 2023-04-03 23:59 | Outpatient (BNV) | payer OTHER, SELFPAY ==
--- NOTE | 2023-04-15 20:33 | A.OFFVIS_ITS ---
Intake Intake Visit Reasons: Remote Device Check- [employer] Allergies lisinopril Allergy (Unknown, Verified 03/13/23 11:12) cough oxycodone Allergy (Unknown, Verified 03/13/23 11:12) urticaria PFSH Surgical History History of toe surgery Pacemaker Hx of colonoscopy Family History Mother Lung cancer Father Brain aneurysm Brother Prostate cancer Sister Diabetes Social History Alcohol intake: current Alcohol intake frequency: a few times a week Alcohol type: hard liquor Patient Tobacco Use Status: Former Tobacco user Quit Date: Years Smoked: 20+ Office Procedures Cardiac Device Check Cardiac Device Check Details: 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 [id number] Cardiac Device Interrogation, pacemaker Procedure code (CPT) selection complete Assessment & Plan Assessment & Plan (1) Pacemaker: Code(s): Z95.0 - Presence of cardiac pacemaker Plan: Coding Level of Care Code Procedure Only Diagnoses Pacemaker Z95.0 CPT Codes Cardiac Device Check - Cardiac Device 12: [id number] Cardiac Device Interrogation, pacemaker ([id number])
== END ==
PROVIDERS: PCP Internal Medicine; Visit Provider Internal Medicine Cardiovascular Disease
DX: I44.2 Atrioventricular block, complete (principal); Z95.0 Presence of cardiac pacemaker
CPT/HCPCS: 93294

== ENCOUNTER 2023-04-10 10:53 | Outpatient (AMB) | payer OTHER, SELFPAY ==
[2023-04-10 11:15] VITALS: BMI 30.6
--- NOTE | 2023-04-10 11:15 | A.OFFVIS_ITS ---
Intake VS Expanded 04/10/23 11:15 Height 5 ft 8 in Weight 201 lb 8.04 oz BMI 30.6 Intake Visit Reasons: Hyperkalemia/LVM Allergies lisinopril Allergy (Unknown, Verified 03/13/23 11:12) cough oxycodone Allergy (Unknown, Verified 03/13/23 11:12) urticaria HPI Nutrition Presentation Details Pt presents for MNT follow up for hyperkalemia. He reports eating variety of foods, and choosing lots of low potassium vegetables, referring to list provided at last visit. working on reducing high salt foods. Pt brings folder with low sodium food choices and diet plan, he is concerned about his kidney function. Physical activity: sedentary Most Recent Diabetes Results: Microalb/Creat Ratio 290.7 ug/mg cr (<30) H 01/23/23 Cholesterol 125 mg/dL (<200) 01/23/23 HDL Cholesterol 56 mg/dL (>40) 01/23/23 Triglycerides 111 mg/dL (<150) 01/23/23 Creatinine 1.52 mg/dL (0.5-1.4) H 01/23/23 Blood Urea Nitrogen 23 mg/dL (9-16) H 01/23/23 Sodium 136 mmol/L (135-145) 01/23/23 Potassium 4.9 mmol/L (3.3-5.1) 01/23/23 Chloride 106 mmol/L (96-108) 01/23/23 Carbon Dioxide 23 mmol/L (22-29) 01/23/23 Calcium 9.9 mg/dL (8.4-10.2) 01/23/23 AST 25 U/L (5-37) 01/23/23 ALT 30 U/L (0-40) 01/23/23 Total Protein 7.5 g/dL (6.5-8.0) 01/23/23 Albumin 4.5 g/dL (3.5-5.0) 01/23/23 PFSH Surgical History History of toe surgery Pacemaker Hx of colonoscopy Family History Mother Lung cancer Father Brain aneurysm Brother Prostate cancer Sister Diabetes Social History (Reviewed 03/13/23 @ 11:13 by Mayra Almeida Alcohol intake: current Alcohol intake frequency: a few times a week Alcohol t ype: hard liquor Patient Tobacco Use Status: Former Tobacco user Quit Date: Years Smoked: 20+ Assessment & Plan Assessment & Plan (1) Hyperkalemia: Code(s): E87.5 - Hyperkalemia Plan: wt: 89 kg Est kcal needs as per MSJ: 2200 (40% carb, 30% protein/fat) Est fluid needs as per 30 ml/d: 2700 Est prot per day as per 1 g/kg bw: 89g Recommend fiber intake : 8-10 g per day and gradually increase to 25-28 g per day for women and 35-38 g for men or as tolerated Recommend sodium intake per day : less than 2000 mg Educated patient on: ( R = reviewed V = verbalizes understanding N/R = needs review N/A = not applicable * Healthy plate method concept: R * Variety of foods /foods choices: R * low potassium sources of foods :R * lean protein sources of foods (plant/animal sources) : R * Physical activity: Benefits a precaution: R Patient Instructions: Continue working on following healthy plate method and choosing a variety of foods. Choose low sodium seasoning choices - refer to your list of low sodium recipes Engage in physical activity, goal 10 minutes daily Coding Level of Care Code Nutr Indiv Subseq (90253) Diagnoses Hyperkalemia E87.5 Time Spent (min) 25
== END 2023-04-10 12:12 | disposition home or self-care (01) ==
PROVIDERS: PCP Internal Medicine; Visit Provider Dietitian, Registered
DX: E87.5 Hyperkalemia (principal)

== ENCOUNTER → 2023-04-10 10:53 | Outpatient (BNVA) | payer OTHER, SELFPAY | PROVIDERS: PCP Internal Medicine; Visit Provider Dietitian, Registered | DX: E87.5 Hyperkalemia (principal); Z71.3 Dietary counseling and surveillance | CPT/HCPCS: 97803 ==

== ENCOUNTER 2023-05-12 11:27 | Outpatient (REF) | payer MEDICARE, SELFPAY ==
[2023-05-12 14:41] LABS: Alanine Aminotransferase 28 U/L (0-40); Albumin Level 4.2 g/dL (3.5-5.0); Alkaline Phosphatase 86 U/L (39-117); Anion Gap 13 (12-20); Aspartate Amino Transferase 24 U/L (5-37); Bilirubin Total 0.4 mg/dL (0.0-1.0); Blood Urea Nitrogen 32 mg/dL (9-16); Calcium 10.3 mg/dL (8.4-10.2); Carbon Dioxide 25 mmol/L (22-29); Chloride 107 mmol/L (96-108); Estimated Glomerular Filt Rate 52; Glucose Random 103 mg/dL (60-115); Potassium 4.8 mmol/L (3.3-5.1); Sodium 140 mmol/L (135-145); Total Protein 7.2 g/dL (6.5-8.0)
[2023-05-12 14:47] LABS: Creatinine Urine 101.18 mg/dL; Microalbum/Creatinine Ratio Ur 123.5 ug/mg cr (<30)
== END 2023-05-12 11:28 | disposition home or self-care (01) ==
LOC: HO.HMGCLDS 11:27
PROVIDERS: PCP Internal Medicine; Visit Provider Internal Medicine
DX: I10 Essential (primary) hypertension (principal); E11.9 Type 2 diabetes mellitus without complications
CPT/HCPCS: 36415; 80053; 82043; 82570

== ENCOUNTER → 2023-05-22 12:29 | Outpatient (BNVA) | payer OTHER, SELFPAY | PROVIDERS: PCP Internal Medicine; Visit Provider Nurse Practitioner Family ==

== ENCOUNTER → 2023-07-03 23:59 | Outpatient (BNV) | payer OTHER, SELFPAY ==
--- NOTE | 2023-08-22 15:30 | A.OFFVIS_ITS ---
Intake Visit Reasons: Remote device check- [place] [employer] Allergies lisinopril Allergy (Unknown, Verified 03/13/23 11:12) cough oxycodone Allergy (Unknown, Verified 03/13/23 11:12) urticaria PFSH Surgical History History of toe surgery Pacemaker Hx of colonoscopy Family History Mother Lung cancer Father Brain aneurysm Brother Prostate cancer Sister Diabetes Social History Alcohol intake: current Alcohol intake frequency: a few times a week Alcohol type: hard liquor Patient Tobacco Use Status: Former Tobacco user Years Smoked: 20+ Office Procedures Cardiac Device Check Cardiac Device Check Details: New [place] [employer] permanent pacemaker. Battery okay. V paced 100%. No new alerts. [id number] Cardiac Device Check, pacemaker dual lead Procedure code (CPT) selection complete Assessment & Plan Assessment & Plan (1) Pacemaker: Code(s): Z95.0 - Presence of cardiac pacemaker Category: Medical Plan Coding Level of Care Code Procedure Only Diagnoses Pacemaker Z95.0 CPT Codes Cardiac Device Check - Cardiac Device 2: [id number] Cardiac Device Check, pacemaker dual lead ([id number])
== END ==
PROVIDERS: PCP Internal Medicine; Visit Provider Internal Medicine Cardiovascular Disease
DX: Z45.018 Encounter for adjustment and management of other part of cardiac pacemaker (principal)
CPT/HCPCS: 93294

== ENCOUNTER 2023-07-06 10:45 | Outpatient (AMB) | payer OTHER, SELFPAY ==
[2023-07-06 11:13] VITALS: BMI 30.1
--- NOTE | 2023-07-06 11:13 | A.OFFVIS_ITS ---
Intake VS Expanded 07/06/23 11:13 Height 5 ft 8 in Weight 197 lb 15.602 oz BMI 30.1 Intake Visit Reasons: Hyperkalemia Allergies lisinopril Allergy (Unknown, Verified 03/13/23 11:12) cough oxycodone Allergy (Unknown, Verified 03/13/23 11:12) urticaria HPI Nutrition Presentation Details Pt presents for MNT f/u for hyperkalemia. Pt reports working on dietary modifications, including a variety of vegetables in the diet and choosing lower fat protein sources of foods. Pt reports having written references regarding foods and potassium content and working on balancing meals and trying different recipes (Pt brought a folder with multiple recipes from [employer]) Noted K level on 05/2023 was within normal limit Physical activity, reports tracking steps reaching 4-6000 steps per day Most Recent Diabetes Results: Microalb/Creat Ratio 123.5 ug/mg cr (<30) H 05/12/23 Cholesterol 125 mg/dL (<200) 01/23/23 HDL Cholesterol 56 mg/dL (>40) 01/23/23 Triglycerides 111 mg/dL (<150) 01/23/23 Creatinine 1.34 mg/dL (0.5-1.4) 05/12/23 Blood Urea Nitrogen 32 mg/dL (9-16) H 05/12/23 Sodium 140 mmol/L (135-145) 05/12/23 Potassium 4.8 mmol/L (3.3-5.1) 05/12/23 Chloride 107 mmol/L (96-108) 05/12/23 Carbon Dioxide 25 mmol/L (22-29) 05/12/23 Calcium 10.3 mg/dL (8.4-10.2) H 05/12/23 AST 24 U/L (5-37) 05/12/23 ALT 28 U/L (0-40) 05/12/23 Total Protein 7.2 g/dL (6.5-8.0) 05/12/23 Albumin 4.2 g/dL (3.5-5.0) 05/12/23 PFSH Surgical History History of toe surgery Pacemaker Hx of colonoscopy Family History Mother Lung cancer Father Brain aneurysm Brother Prostate cancer Sister Diabetes Social History Alcohol intake: current Alcohol intake frequency: a few times a week Alcohol type: hard liquor Patient Tobacco Use Status: Former Tobacco user Quit Date: Years Smoked: 20+ Assessment & Plan Assessment & Plan (1) Hyperkalemia: Code(s): E87.5 - Hyperkalemia Plan: wt: 90 kg (07/2023) Est kcal needs as per MSJ: 2200 (40% carb, 30% protein/fat) Est fluid needs as per 30 ml/d: 2700 Est prot per day as per 1 g/kg bw: 89g Recommend fiber intake : 8-10 g per day and gradually increase to 25-28 g per day for women and 35-38 g for men or as tolerated Recommend sodium intake per day : less than 2000 mg Educated patient on: ( R = reviewed V = verbalizes understanding N/R = needs review N/A = not applicable * Healthy plate method concept: R, V * Variety of foods /foods choices: R , V * low potassium sources of foods :R, V * lean protein sources of foods (plant/animal sources) : R , V * Physical activity: Benefits a precaution: R Patient Instructions: Continue working on balancing your meals as established following healthy plate method Continue working on choosing less processed foods and choosing fresh produce, home made meals. keep hydrated by having water with meals. Coding Level of Care Code Nutr Indiv Subseq (02421) Diagnoses Hyperkalemia E87.5 Time Spent (min) 30
== END 2023-07-06 11:51 | disposition home or self-care (01) ==
PROVIDERS: PCP Internal Medicine; Visit Provider Dietitian, Registered
DX: E87.5 Hyperkalemia (principal)

== ENCOUNTER → 2023-07-06 10:45 | Outpatient (BNVA) | payer OTHER, SELFPAY | PROVIDERS: PCP Internal Medicine; Visit Provider Dietitian, Registered | DX: E87.5 Hyperkalemia (principal) | CPT/HCPCS: 97803 ==

== ENCOUNTER 2023-09-18 10:06 | Outpatient (AMB) | payer OTHER, SELFPAY ==
--- NOTE | 2023-09-18 10:11 | A.OFFVIS_ITS ---
Vital Signs 09/18/23 10:12 Height 5 ft 8 in Weight 194 lb 14.218 oz BMI 29.6 BP 120/60 Blood Pressure Location Lt brachial Position Sitting Pulse 71 Pulse Source Monitor Intake Visit Reasons: 6 mth f/up Intake Note: pt is here for his 6 mth f/up pt state that he is doing fine. 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 Accompanied by: Self / Same As Patient Allergies lisinopril Allergy (Unknown, Verified 03/13/23 11:12) cough oxycodone Allergy (Unknown, Verified 03/13/23 11:12) urticaria Medication List - Last Reconciled 09/18/23 by Flip Jain MD amlodipine 5 mg PO DAILY aspirin (Adult Low Dose Aspirin) 81 mg PO DAILY clobetasol 0.05% 1 appl topical DAILY finasteride 5 mg PO DAILY levothyroxine 50 mcg PO DAILY losartan 100 mg PO DAILY metformin 1,000 mg PO BID rosuvastatin 40 mg PO DAILY spironolactone 12.5 mg PO DAILY tamsulosin 0.4 mg PO DAILY vitamins A,C,Z-ahhy-zagerv 4,296 mcg-226 mg-90 mg (PreserVision AREDS) 1 cap PO BID HPI Comments Details: 78-year-old gentleman here for follow-up. He has background history of hypertension and complete heart block for which he had permanent pacemaker placed at [facility]. He was also diagnosed with Lyme disease and was told that potentially the heart block was due to Lyme disease. He continues to do well. He has no chest discomfort. Denies any dyspnea. Blood pressure control is good. Last device check he was 100 % V-paced. 09/07/22: He is here for follow-up. He has been active and has no exertional symptoms. He has been adjusting his diet because he had blood workup done at [facility] where his potassium was noticed to be initially 5.2 and then 4.5. He has been taking losartan 100 mg and spironolactone 12.5 mg once a day. He is saying his diet includes a lot of vegetables and fruits and significant potassium intake. He feels that changing his diet will be a problem and is asking whether he can be referred to a dietitian. I have reviewed his medications and obviously being on spironolactone and losartan can raise the potassium. His potassium was 5.2 and repeat was 4.5. 03/13/2023: He returns for follow-up. On last visit he was advised to stop the spironolactone given the fact that he had hyperkalemia. It appears he saw his primary care physician and was referred to dietitian and was advised to cut back on a lot of vegetables that he likes to eat. His back and is saying that he is taking spironolactone. Blood pressure is well controlled. No other concerns. 09/18/2023: He is here for follow-up. Previously had hyperkalemia and wanted to try dietary changes to see if potassium can be improved. He was on spironolactone and he was given an option to stop spironolactone. He is back and has been trying quite hard and is on a vegetarian diet. He is saying that he feels hungry quite frequently because he can not use certain vegetables because of potassium content. We discussed that spironolactone is his potassium-sparing diuretic and can lead to hyperkalemia. He has an option to stop spironolactone and he is agreeable to stop it. [facility] Surgical History History of toe surgery Pacemaker Hx of colonoscopy Family History Mother Lung cancer Father Brain aneurysm Brother Prostate cancer Sister Diabetes Social History Alcohol intake: current Alcohol intake frequency: a few times a week Alcohol type: hard liquor Patient Tobacco Use Status: Former Tobacco user Years Smoked: 20+ Review of Systems Const Denies chills, Denies fatigue, Denies fever(s), Denies frequent falls, Denies weakness, Denies weight gain and Denies weight loss ENT Denies dizziness Card Denies chest pain, Denies leg edema, Denies lightheadedness, Denies palpitations, Denies dyspnea and Denies dyspnea on exertion Resp Denies cough, Denies dyspnea and Denies dyspnea on exertion GI Denies hematochezia Musc Denies abnormal gait, Denies muscle weakness, Denies numbness, Denies radiating pain into limb and Denies tingling Neuro Denies abnormal gait, Denies dizziness, Denies frequent falls, Denies numbness, Denies tingling and Denies weakness Endo Denies fatigue and Denies palpitations Physical Exam Vital Signs: Last Vital Signs Pulse 71 09/18/23 10:12 BP 120/60 09/18/23 10:12 BMI result Body Mass Index 29.6 GENERAL APPEARANCE: in no acute distress, pleasant. NECK: no carotid bruit, no jugular venous distention. SKIN: no suspicious lesions, warm and dry. HEART: no murmurs, regular rate and rhythm. LUNGS: clear to auscultation bilaterally. ABDOMEN: soft, nontender. EXTREMITIES: no edema. PERIPHERAL PULSES: equal. NEUROLOGIC: No gross deficits, AAO X 3 Office Procedures EKG Details: Sinus rhythm 71 beats per minute, leftward axis, incomplete right bundle-branch block, can not rule out anteroseptal infarct, QTC 425 milliseconds. [id number], Complete Assessment & Plan Assessment & Plan (1) Hypertension: Comment: Stable Code(s): I10 - Essential (primary) hypertension Category: Medical Qualifiers: Hypertension type: essential hypertension Qualified Code(s): I10 - Essential (primary) hypertension (2) Pacemaker: Code(s): Z95.0 - Presence of cardiac pacemaker Category: Medical Plan 78-year-old gentleman who is here for follow-up. He has background history of complete heart block and permanent pacemaker. We have not received any downloads from his device since 06/24/2023. We will check into this. He is saying his device is attached to Internet at home. Blood pressure is well controlled. He has hyperkalemia and and I have advised him to stop the spironolactone. He will monitor blood pressure and if his blood pressure rises close to 140/90 then we may have to adjust his medications. In that situation my 1st advice will be to make his amlodipine b.i.d.. He ventricular paces quite frequently on the device interrogation. Last echo was 2 years ago. We will repeat echocardiogram to reassess ejection fraction. Thank you for allowing me to participate in the care of your patient. Please feel free to contact me if you have any questions. Orders: Orders CA echo transthorac w con Today Z95.0 - Presence of cardiac pacemaker Coding Level of Care Code Est Pt Level 4 (38644) Diagnoses Essential hypertension I10 Hypertension type: essential hypertension Pacemaker Z95.0 CPT Codes EKG - CPT: 56334-[id number], Complete ([id number])
[2023-09-18 10:12] VITALS: BP 120/60; PULSE 71; BMI 29.6
== END 2023-09-18 10:56 | disposition home or self-care (01) ==
PROVIDERS: PCP Internal Medicine; Visit Provider Internal Medicine Cardiovascular Disease
DX: I10 Essential (primary) hypertension (principal); Z95.0 Presence of cardiac pacemaker
CPT/HCPCS: 93010; 99214

== ENCOUNTER → 2023-09-18 10:06 | Outpatient (BNVA) | payer OTHER, SELFPAY | PROVIDERS: PCP Internal Medicine; Visit Provider Internal Medicine Cardiovascular Disease | DX: I10 Essential (primary) hypertension (principal); Z95.0 Presence of cardiac pacemaker | CPT/HCPCS: 93005; 99212 ==

== ENCOUNTER → 2023-10-04 10:36 | Outpatient (REF) | payer OTHER, SELFPAY ==
--- NOTE | 2023-10-04 10:40 | CA_ITS ---
Transthoracic Echocardiogram Patient (Last, First, Middle): Pollo Arevalo A Gender: Male Date of : 1945 Age: 78 Procedure Date: 10/04/2023 Procedure Type: Transthoracic Echocardiogram Location: OP Height: 172.72 cm Weight: 85.28 kg BSA: 1.99 m2 Heart Rate: bpm BP: 130 / 72 mmHg Teller Supervisor: TO Referring MD: Flip Jain MD Magento Developer: Flip Jain MD Symptoms: Z95.0 - Presence of cardiac pacemaker Study Quality: Fair/Contrast Conclusions: - Normal left ventricular size and systolic function. There is mildly increased left ventricular wall thickness. The visually estimated ejection fraction is between 55-60%. - Normal right ventricular cavity size and systolic function. - There is mild dilatation of the sinuses of Valsalva measuring 4.14 cm and mild dilatation of the ascending aorta measuring 3.80 cm. Findings Procedure Information Contrast agent, definity, is being given per protocol without apparent complications. Left Ventricle Normal left ventricular size and systolic function. There is mildly increased left ventricular wall thickness. The visually estimated ejection fraction is between 55-60%. There is no evidence of regional wall motion abnormalities. Diastolic function is indeterminate on the basis of available data. Right Ventricle Normal right ventricular cavity size and systolic function. Atria The left atrium is mildly dilated. The right atrium is likely dilated. Aortic Valve Normal aortic valve structure and function. There is no aortic valve stenosis. There is no aortic valve regurgitation. Mitral Valve Normal mitral valve structure and function. There is no mitral valve regurgitation. There is no mitral valve stenosis. Pulmonic Valve The pulmonic valve is normal. There is trace pulmonic valve regurgitation. Tricuspid Valve Normal tricuspid valve structure. There is trace tricuspid valve regurgitation. Normal right atrial pressure. There is no evidence of pulmonary hypertension. Great Vessels There is mild dilatation of the sinuses of Valsalva measuring 4.14 cm and mild dilatation of the ascending aorta measuring 3.80 cm. The visualized portions of the pulmonary artery and branches are normal. Venous The inferior vena cava is normal in size and collapses greater than 50% with inspiration. Pericardium/Pleural There is no evidence of pericardial effusion. Prior Study Comparison Changes noted compared to prior study dated: 08/30/2021. Mild dilatation of aorta. Measurements 2D Linear Measurements IVSd: 1.23 0.6-0.9/0.6-1.0 cm LVIDd: 4.54 3.9-5.3/4.2-5.9 cm LVIDd Index: 2.28 2.4-3.2/2.2-3.1 cm/m2 LVIDs: 3.11 2.0-3.6 cm LVPWd: 1.30 0.7-1.1 cm LA Diam: 3.90 2.7-3.8/3.0-4.0 cm LAIDs Index: 1.96 1.5-2.3 cm/m2 LV Mass: 270.21 67-162/88-224 g LV Mass Index: 135.78 43-95/49-115 g/m2 LVOT Diam: 2.20 3.0+(-)1.3 cm 2D Systolic Function EF 4C: 53.20 >55% EF 2C: 54.90 >55% EF BiP: 54.20 >55% Mitral Valve MV Pk E: 0.68 MV PK A: 0.98 MV Decel Time: 262.00 E/A: 0.70 E'Lateral: 5.55 E'Medial: 4.03 E/E' Med: 16.90 E/E' Lat: 12.30 PHT: 77.00 MVA PHT: 2.86 Decel Parke: 2.60 Aortic Valve AoV Pk Ranjeet: 1.48 AoV Mn Ranjeet: 1.07 AoV VTI: 0.31 AoV Pk Grad: 9.00 Aov Mn Grad: 5.00 MICKEY Cont.VTI: 2.72 LVOT LVOT Pk Ranjeet: 1.07 LVOT Mn Ranjeet: 0.67 LVOT VTI: 0.23 LVOT Pk Grad: 5.00 LVOT Mn Grad: 2.00 LVOT Diam: 2.20 LVOT Area: 3.80 Diastolic Function MV Pk E: 0.68 MV Pk A: 0.98 E/A: 0.70 E'Medial: 4.03 E/E' Med: 16.90 E' Laterial: 5.55 E/E' Lat: 12.30 Right Ventricle TAPSE (mm): 17.40 TVS' Ranjeet: 10.70 Tricuspid Valve TR Pk Ranjeet: 2.01 TR Pk Grad: 16.00 RA Press: 3.00 RVSP: 19.00 Great Vessels Aorta Sinus of Valsalva: 4.14 2.0-3.5 cm Ao Asc: 3.80 2.1-3.4 cm Updated in Other Vendor System with Status of Final Flip Jain MD electronically signed on 10/05/2023 10:34:33 PM with status of Final
== END ==
LOC: HO.CARD 10:36
PROVIDERS: PCP Internal Medicine; Visit Provider Internal Medicine Cardiovascular Disease
DX: Z95.0 Presence of cardiac pacemaker (principal)
CPT/HCPCS: 93306; Q9957

== ENCOUNTER → 2023-10-04 10:40 | Outpatient (BNV) | payer OTHER, SELFPAY | PROVIDERS: PCP Internal Medicine; Visit Provider Internal Medicine Cardiovascular Disease | DX: I71.21 Aneurysm of the ascending aorta, without rupture (principal); Z95.0 Presence of cardiac pacemaker | CPT/HCPCS: 93306 ==

== ENCOUNTER → 2023-10-09 23:59 | Outpatient (BNV) | payer OTHER, SELFPAY ==
--- NOTE | 2023-10-11 21:12 | A.OFFVIS_ITS ---
Intake Visit Reasons: Remote device check- Rodger Scient Allergies lisinopril Allergy (Unknown, Verified 03/13/23 11:12) cough oxycodone Allergy (Unknown, Verified 03/13/23 11:12) urticaria PFSH Surgical History History of toe surgery Pacemaker Hx of colonoscopy Family History Mother Lung cancer Father Brain aneurysm Brother Prostate cancer Sister Diabetes Social History Alcohol intake: current Alcohol intake frequency: a few times a week Alcohol type: hard liquor Patient Tobacco Use Status: Former Tobacco user Years Smoked: 20+ Office Procedures Cardiac Device Check Cardiac Device Check Details: PPM Good battery life No new alerts 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 90641-[id number] Cardiac Device Check, pacemaker dual lead Procedure code (CPT) selection complete Assessment & Plan Assessment & Plan (1) Pacemaker: Code(s): Z95.0 - Presence of cardiac pacemaker Category: Medical Plan Orders: Orders AMB Cardiac Device Follow-up 10/09/23 I48.0 - Paroxysmal atrial fibrillation, Z95.0 - Presence of cardiac pacemaker Coding Level of Care Code Procedure Only Diagnoses Pacemaker Z95.0 CPT Codes Cardiac Device Check - Cardiac Device 2: 29086-XM Cardiac Device Check, pacemaker dual lead ([id number])
== END ==
PROVIDERS: PCP Internal Medicine; Visit Provider Internal Medicine Cardiovascular Disease
DX: Z45.018 Encounter for adjustment and management of other part of cardiac pacemaker (principal)
CPT/HCPCS: 93294

== ENCOUNTER 2023-10-24 10:15 | Outpatient (REF) | payer MEDICARE, SELFPAY ==
[2023-10-24 11:21] LABS: MANUAL DIFF FLAG NO
[2023-10-24 11:37] LABS: Basophils Absolute Auto 0.1 X10*3/uL (0.0-0.2); Basophils Percent Auto 0.8 % (0-2); Eosinophils Absolute Auto 0.2 X10*3/uL (0.0-0.4); Eosinophils Percent Auto 2.8 % (0-4); Hematocrit 42.4 % (42.0-52.0); Hemoglobin 13.9 g/dl (14.0-18.0); Imm Gran Abs Auto 0.02 X10*3/uL (0.00-0.03); Imm Gran Pct Auto 0.3 % (0.0-0.4); Lymphocytes Absolute Auto 1.6 X10*3/uL (1.2-4.9); Lymphocytes Percent Auto 26.2 % (20-40); Mean Corpuscular HGB Conc 32.8 g/dl (31.0-36.0); Mean Corpuscular Volume 88.3 fL (80.0-98.0); Mean Platelet Volume 11.6 fL (9.4-12.4); Monocytes Absolute Auto 0.5 X10*3/uL (0.1-1.2); Monocytes Percent Auto 7.8 % (2-11); Neutrophils Absolute Auto 3.8 x10*3/uL (2.0-8.3); Neutrophils Percent Auto 62.1 % (45-73); Platelet Count 158 X10*3/uL (160-400); Red Cell Distribution Width 14.2 % (11.0-16.0); White Blood Count 6.2 X10*3/uL (4.8-10.8)
[2023-10-24 11:39] LABS: Appearance Urine Clear; Color Urine Yellow; Glucose Urine UA Negative (Negative); Leukocyte Esterase Urine Negative (Negative); Nitrite Urine Negative (Negative); PH 6.5 (5.0-9.0); UMIC TRIGGER UA YES; Urine Blood Negative (Negative); Urine Ketones Negative (Negative); Urine Protein 100 (2+) mg/dL (Neg-Trace)
[2023-10-24 11:42] LABS: Bacteria Urine None Seen (None Seen); Hyaline Casts Urine 0-2 /LPF (0-2); RBC Urine 0-2 /HPF (0-2); Squamous Epithelial Cell Urine 0-2 /HPF (0-2); WBC Urine 0-5 /HPF (0-5)
[2023-10-24 11:50] LABS: Estimated Average Glucose 105 mg/dL; Hemoglobin A1c % 5.3 % (<6.0)
[2023-10-24 12:15] LABS: Creatinine Urine 50.87 mg/dL; Microalbum/Creatinine Ratio Ur 605.4 ug/mg cr (<30)
[2023-10-24 12:23] LABS: Alanine Aminotransferase 24 U/L (0-40); Albumin Level 4.2 g/dL (3.5-5.0); Alkaline Phosphatase 89 U/L (39-117); Anion Gap 16 (12-20); Aspartate Amino Transferase 24 U/L (5-37); Bilirubin Total 0.5 mg/dL (0.0-1.0); Blood Urea Nitrogen 12 mg/dL (9-16); Calcium 9.6 mg/dL (8.4-10.2); Carbon Dioxide 20 mmol/L (22-29); Chloride 109 mmol/L (96-108); Cholesterol 124 mg/dL (<200); Estimated Glomerular Filt Rate > 60; Glucose Fasting 96 mg/dL (60-99); HDL Cholesterol 49 mg/dL (>40); LDL Cholesterol Calculated 47 mg/dL (<100); Potassium 4.5 mmol/L (3.3-5.1); Sodium 140 mmol/L (135-145); Total Protein 6.9 g/dL (6.5-8.0); Triglycerides 141 mg/dL (<150)
[2023-10-24 12:28] LABS: Thyroid Stimulating Hormone 2.03 uIU/mL (0.32-4.0); Vitamin D 25-OH Total 46.9 ng/mL (>30)
== END 2023-10-24 10:16 | disposition home or self-care (01) ==
LOC: HO.LAB 10:15
PROVIDERS: PCP Internal Medicine; Visit Provider Internal Medicine
DX: I10 Essential (primary) hypertension (principal); E03.9 Hypothyroidism, unspecified; E11.9 Type 2 diabetes mellitus without complications; N21.0 Calculus in bladder
CPT/HCPCS: 36415; 80053; 80061; 81001; 82043; 82306; 82570; 83036; 84443; 85025

== ENCOUNTER 2023-12-13 11:18 | Outpatient (AMB) | payer OTHER, SELFPAY ==
[2023-12-13 11:24] VITALS: BP 130/60; PULSE 70; BMI 29.4
--- NOTE | 2023-12-13 11:24 | A.OFFVIS_ITS ---
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 Accompanied by: Self / Same As Patient Allergies lisinopril Allergy (Unknown, Verified 03/13/23 11:12) cough oxycodone Allergy (Unknown, Verified 03/13/23 11:12) urticaria Medication List - Last Reconciled 12/13/23 by Flip Jain MD amlodipine 5 mg PO DAILY aspirin (Adult Low Dose Aspirin) 81 mg PO DAILY atorvastatin 80 mg PO BEDTIME clobetasol 0.05% 1 appl topical DAILY finasteride 5 mg PO DAILY levothyroxine 50 mcg PO DAILY losartan 50 mg PO DAILY metformin 1,000 mg PO BID tamsulosin 0.4 mg PO DAILY vitamins A,C,K-dxnn-fjnlwu 4,296 mcg-226 mg-90 mg (PreserVision AREDS) 1 cap PO BID HPI Comments Details: 78-year-old gentleman here for follow-up. He has background history of hypertension and complete heart block for which he had permanent pacemaker placed at [facility]. He was also diagnosed with Lyme disease and was told that potentially the heart block was due to Lyme disease. He continues to do well. He has no chest discomfort. Denies any dyspnea. Blood pressure control is good. Last device check he was 100 % V-paced. 09/07/22: He is here for follow-up. He has been active and has no exertional symptoms. He has been adjusting his diet because he had blood workup done at [facility] where his potassium was noticed to be initially 5.2 and then 4.5. He has been taking losartan 100 mg and spironolactone 12.5 mg once a day. He is saying his diet includes a lot of vegetables and fruits and significant potassium intake. He feels that changing his diet will be a problem and is asking whether he can be referred to a dietitian. I have reviewed his medications and obviously being on spironolactone and losartan can raise the potassium. His potassium was 5.2 and repeat was 4.5. 03/13/2023: He returns for follow-up. On last visit he was advised to stop the spironolactone given the fact that he had hyperkalemia. It appears he saw his primary care physician and was referred to dietitian and was advised to cut back on a lot of vegetables that he likes to eat. His back and is saying that he is taking spironolactone. Blood pressure is well controlled. No other concerns. 09/18/2023: He is here for follow-up. Previously had hyperkalemia and wanted to try dietary changes to see if potassium can be improved. He was on spironolactone and he was given an option to stop spironolactone. He is back and has been trying quite hard and is on a vegetarian diet. He is saying that he feels hungry quite frequently because he can not use certain vegetables because of potassium content. We discussed that spironolactone is his potassium-sparing diuretic and can lead to hyperkalemia. He has an option to stop spironolactone and he is agreeable to stop it. 12/13/2023: He returns for follow-up. No chest pain or shortness of breath. He has CKD and has been following at [facility]. On last visit I advised him to stop the spironolactone because of difficulty in managing his potassium level. He is concerned about proteinuria and apparently was off his losartan when his proteinuria worsened. I think losartan was held because of hyperkalemia. He is currently on losartan 50 mg. Blood pressure is well controlled. [facility] Surgical History History of toe surgery Pacemaker Hx of colonoscopy Family History Mother Lung cancer Father Brain aneurysm Brother Prostate cancer Sister Diabetes Social History Alcohol intake: current Alcohol intake frequency: a few times a week Alcohol type: hard liquor Patient Tobacco Use Status: Former Tobacco user Years Smoked: 20+ Review of Systems Const Denies chills, Denies fatigue, Denies fever(s), Denies frequent falls, Denies weakness, Denies weight gain and Denies weight loss ENT Denies dizziness Card Denies chest pain, Denies leg edema, Denies lightheadedness, Denies palpitations, Denies dyspnea and Denies dyspnea on exertion Resp Denies cough, Denies dyspnea and Denies dyspnea on exertion GI Denies hematochezia Musc Denies abnormal gait, Denies muscle weakness, Denies numbness, Denies radiating pain into limb and Denies tingling Neuro Denies abnormal gait, Denies dizziness, Denies frequent falls, Denies numbness, Denies tingling and Denies weakness Endo Denies fatigue and Denies palpitations Physical Exam Vital Signs: Last Vital Signs Pulse 70 12/13/23 11:24 BP 130/60 12/13/23 11:24 BMI result Body Mass Index 29.4 GENERAL APPEARANCE: in no acute distress, pleasant. NECK: no carotid bruit, no jugular venous distention. SKIN: no suspicious lesions, warm and dry. HEART: no murmurs, regular rate and rhythm. LUNGS: clear to auscultation bilaterally. ABDOMEN: soft, nontender. EXTREMITIES: no edema. PERIPHERAL PULSES: equal. NEUROLOGIC: No gross deficits, AAO X 3 Assessment & Plan Assessment & Plan (1) Hypertension: Comment: Stable Code(s): I10 - Essential (primary) hypertension Category: Medical Qualifiers: Hypertension type: essential hypertension Qualified Code(s): I10 - Essential (primary) hypertension (2) Pacemaker: Code(s): Z95.0 - Presence of cardiac pacemaker Category: Medical (3) CHB (complete heart block): Comment: He is status post permanent pacemaker placement. Code(s): I44.2 - Atrioventricular block, complete Category: Medical Plan [age] gentleman who he is here for follow-up. He has background history of complete heart block and has had permanent pacemaker placement. His device interrogation has showed significant V pacing but echocardiography has not shown any evidence of cardiomyopathy. Blood pressure control is good on amlodipine 5 mg daily and losartan 50 mg daily. He is asking me about Jardiance which is recommended to him by his animal pathology teacher at [facility]. I have explained to him that Jardiance has good cardiovascular outcomes. Also from CKD point of view there is good data about SGLT2 inhibitors. He will discuss this with his primary care physician and would consider starting Jardiance. I have discussed with him about the side effects including urinary tract infections. Thank you for allowing me to participate in the care of your patient. Please feel free to contact me if you have any questions. Coding Level of Care Code Est Pt Level 4 (89261) Diagnoses Essential hypertension I10 Hypertension type: essential hypertension Pacemaker Z95.0 CHB (complete heart block) I44.2
== END 2023-12-13 11:51 | disposition home or self-care (01) ==
PROVIDERS: PCP Internal Medicine; Referring Provider Internal Medicine; Visit Provider Internal Medicine Cardiovascular Disease
DX: I10 Essential (primary) hypertension (principal); Z95.0 Presence of cardiac pacemaker; I44.2 Atrioventricular block, complete
CPT/HCPCS: 99214

== ENCOUNTER → 2023-12-13 11:18 | Outpatient (BNVA) | payer OTHER, SELFPAY | PROVIDERS: PCP Internal Medicine; Visit Provider Internal Medicine Cardiovascular Disease | DX: I12.9 Hypertensive chronic kidney disease with stage 1 through stage 4 chronic kidney disease, or unspecified chronic kidney disease (principal); N18.9 Chronic kidney disease, unspecified; I44.2 Atrioventricular block, complete; Z95.0 Presence of cardiac pacemaker | CPT/HCPCS: 99212 ==

== ENCOUNTER → 2024-01-08 23:59 | Outpatient (BNV) | payer OTHER, SELFPAY ==
--- NOTE | 2024-01-24 14:04 | A.OFFVIS_ITS ---
Intake Visit Reasons: Remote device check- Rodger Scient Allergies lisinopril Allergy (Unknown, Verified 03/13/23 11:12) cough oxycodone Allergy (Unknown, Verified 03/13/23 11:12) urticaria PFSH Surgical History History of toe surgery Pacemaker Hx of colonoscopy Family History Mother Lung cancer Father Brain aneurysm Brother Prostate cancer Sister Diabetes Social History Alcohol intake: current Alcohol intake frequency: a few times a week Alcohol type: hard liquor Patient Tobacco Use Status: Former Tobacco user Years Smoked: 20+ Office Procedures Cardiac Device Check Cardiac Device Check Details: PPM Battery life 3.5 years. 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 [id number] Cardiac Device Check, pacemaker dual lead Procedure code (CPT) selection complete Assessment & Plan Assessment & Plan (1) Pacemaker: Code(s): Z95.0 - Presence of cardiac pacemaker Category: Medical Plan Coding Level of Care Code Procedure Only Diagnoses Pacemaker Z95.0 CPT Codes Cardiac Device Check - Cardiac Device 2: 91555-MC Cardiac Device Check, pacemaker dual lead ([id number])
== END ==
PROVIDERS: PCP Internal Medicine; Visit Provider Internal Medicine Cardiovascular Disease
DX: Z45.018 Encounter for adjustment and management of other part of cardiac pacemaker (principal)
CPT/HCPCS: 93294

== ENCOUNTER → 2024-04-08 23:59 | Outpatient (BNV) | payer MEDICARE, SELFPAY ==
--- NOTE | 2024-04-10 11:16 | A.OFFVIS_ITS ---
Intake Visit Reasons: Remote device check- Rodger Scient Allergies lisinopril Allergy (Unknown, Verified 03/13/23 11:12) cough oxycodone Allergy (Unknown, Verified 03/13/23 11:12) urticaria PFSH Surgical History History of toe surgery Pacemaker Hx of colonoscopy Family History Mother Lung cancer Father Brain aneurysm Brother Prostate cancer Sister Diabetes Social History Alcohol intake: current Alcohol intake frequency: a few times a week Alcohol type: hard liquor Patient Tobacco Use Status: Former Tobacco user Years Smoked: 20+ Office Procedures Cardiac Device Check Cardiac Device Check Details: [employer] dual-chamber pacemaker. Battery life 2.5 years. No new alerts. V paced 100%. 09188-[id number] Cardiac Device Check, pacemaker dual lead Procedure code (CPT) selection complete Assessment & Plan Assessment & Plan (1) CHB (complete heart block): Comment: He is status post permanent pacemaker placement. Code(s): I44.2 - Atrioventricular block, complete Category: Medical Plan Orders: Orders AMB Cardiac Device Follow-up 04/08/24 I44.2 - Atrioventricular block, complete Coding Level of Care Code Procedure Only Diagnoses CHB (complete heart block) I44.2 CPT Codes Cardiac Device Check - Cardiac Device 2: 74790-OU Cardiac Device Check, pacemaker dual lead ([id number])
== END ==
PROVIDERS: PCP Internal Medicine; Visit Provider Internal Medicine Cardiovascular Disease
DX: I44.2 Atrioventricular block, complete (principal); Z95.0 Presence of cardiac pacemaker
CPT/HCPCS: 93294

== ENCOUNTER 2024-05-31 10:26 | Outpatient (AMB) | payer OTHER, SELFPAY ==
--- NOTE | 2024-05-31 10:28 | MHC.OFFVIS ---
Vital Signs 05/31/24 10:30 Height 5 ft 8 in Weight 189 lb 9.561 oz BMI 28.8 BP 100/60 Blood Pressure Location Lt brachial Position Sitting Pulse 84 Pulse Source Pulse Oximeter Intake Visit Reasons: r/s 04/24/24 4 mos followup Intake Note: r/s 4 mth f/up Servicer Travel Trailers Required: No Accompanied by: Self / Same As Patient Allergies lisinopril Allergy (Unknown, Verified 03/13/23 11:12) cough oxycodone Allergy (Unknown, Verified 03/13/23 11:12) urticaria Medication List - Last Reconciled 05/31/24 by Flip Jain MD amlodipine 5 mg PO DAILY aspirin (Adult Low Dose Aspirin) 81 mg PO DAILY atorvastatin 80 mg PO BEDTIME clobetasol 0.05% 1 appl topical DAILY finasteride 5 mg PO DAILY levothyroxine 50 mcg PO DAILY losartan 100 mg PO DAILY metformin 1,000 mg PO BID tamsulosin 0.4 mg PO DAILY vitamins A,C,P-qvlv-jdndmo 4,296 mcg-226 mg-90 mg (PreserVision AREDS) 1 cap PO BID HPI Comments Details: 79-year-old gentleman here for follow-up. He has background history of hypertension and complete heart block for which he had permanent pacemaker placed at [facility]. He was also diagnosed with Lyme disease and was told that potentially the heart block was due to Lyme disease. He continues to do well. He has no chest discomfort. Denies any dyspnea. Blood pressure control is good. Last device check he was 100 % V-paced. 09/07/22: He is here for follow-up. He has been active and has no exertional symptoms. He has been adjusting his diet because he had blood workup done at [facility] where his potassium was noticed to be initially 5.2 and then 4.5. He has been taking losartan 100 mg and spironolactone 12.5 mg once a day. He is saying his diet includes a lot of vegetables and fruits and significant potassium intake. He feels that changing his diet will be a problem and is asking whether he can be referred to a dietitian. I have reviewed his medications and obviously being on spironolactone and losartan can raise the potassium. His potassium was 5.2 and repeat was 4.5. 03/13/2023: He returns for follow-up. On last visit he was advised to stop the spironolactone given the fact that he had hyperkalemia. It appears he saw his primary care physician and was referred to dietitian and was advised to cut back on a lot of vegetables that he likes to eat. His back and is saying that he is taking spironolactone. Blood pressure is well controlled. No other concerns. 09/18/2023: He is here for follow-up. Previously had hyperkalemia and wanted to try dietary changes to see if potassium can be improved. He was on spironolactone and he was given an option to stop spironolactone. He is back and has been trying quite hard and is on a vegetarian diet. He is saying that he feels hungry quite frequently because he can not use certain vegetables because of potassium content. We discussed that spironolactone is his potassium-sparing diuretic and can lead to hyperkalemia. He has an option to stop spironolactone and he is agreeable to stop it. 12/13/2023: He returns for follow-up. No chest pain or shortness of breath. He has CKD and has been following at [facility]. On last visit I advised him to stop the spironolactone because of difficulty in managing his potassium level. He is concerned about proteinuria and apparently was off his losartan when his proteinuria worsened. I think losartan was held because of hyperkalemia. He is currently on losartan 50 mg. Blood pressure is well controlled. 05/31/2024: He is here for follow-up. He is doing fine. No chest pains or shortness of breath. No palpitations. Taking medications regularly. [facility] Surgical History History of toe surgery Pacemaker Hx of colonoscopy Family History Mother Lung cancer Father Brain aneurysm Brother Prostate cancer Sister Diabetes Social History Alcohol intake: current Alcohol intake frequency: a few times a week Alcohol type: hard liquor Patient Tobacco Use Status: Former Tobacco user Years Smoked: 20+ Review of Systems Const Denies chills, Denies fatigue, Denies fever(s), Denies frequent falls, Denies weakness, Denies weight gain and Denies weight loss ENT Denies dizziness Card Denies chest pain, Denies leg edema, Denies lightheadedness, Denies palpitations, Denies dyspnea and Denies dyspnea on exertion Resp Denies cough, Denies dyspnea and Denies dyspnea on exertion GI Denies hematochezia Musc Denies abnormal gait, Denies muscle weakness, Denies numbness, Denies radiating pain into limb and Denies tingling Neuro Denies abnormal gait, Denies dizziness, Denies frequent falls, Denies numbness, Denies tingling and Denies weakness Endo Denies fatigue and Denies palpitations Physical Exam Vital Signs: Last Vital Signs Pulse 84 05/31/24 10:30 BP 100/60 05/31/24 10:30 BMI result Body Mass Index 28.8 GENERAL APPEARANCE: in no acute distress, pleasant. NECK: no carotid bruit, no jugular venous distention. SKIN: no suspicious lesions, warm and dry. HEART: no murmurs, regular rate and rhythm. LUNGS: clear to auscultation bilaterally. ABDOMEN: soft, nontender. EXTREMITIES: no edema. PERIPHERAL PULSES: equal. NEUROLOGIC: No gross deficits, AAO X 3 Assessment & Plan Assessment & Plan (1) Hypertension: Comment: Stable Code(s): I10 - Essential (primary) hypertension Category: Medical Qualifiers: Hypertension type: essential hypertension Qualified Code(s): I10 - Essential (primary) hypertension (2) Pacemaker: Code(s): Z95.0 - Presence of cardiac pacemaker Category: Medical (3) CHB (complete heart block): Comment: He is status post permanent pacemaker placement. Code(s): I44.2 - Atrioventricular block, complete Category: Medical Plan 79-year-old gentleman who he is here for follow-up. He has background history of complete heart block and has had permanent pacemaker placement. His device interrogation has showed significant V pacing but echocardiography has not shown any evidence of cardiomyopathy. Blood pressure control is good on amlodipine 5 mg daily and losartan 50 mg daily. Clinically stable. He will see us back in 6 months. Thank you for allowing me to participate in the care of your patient. Please feel free to contact me if you have any questions. Coding Level of Care Code Est Pt Level 4 (92684) Complex EM visit Add On G2211 Diagnoses Essential hypertension I10 Hypertension type: essential hypertension Pacemaker Z95.0 CHB (complete heart block) I44.2
[2024-05-31 10:30] VITALS: BP 100/60; PULSE 84; BMI 28.8
== END 2024-05-31 10:49 | disposition home or self-care (01) ==
LOC: HO.HCS 10:26
PROVIDERS: PCP Internal Medicine; Visit Provider Internal Medicine Cardiovascular Disease
DX: I10 Essential (primary) hypertension (principal); Z95.0 Presence of cardiac pacemaker; I44.2 Atrioventricular block, complete
CPT/HCPCS: 99214; G2211

== ENCOUNTER → 2024-05-31 10:26 | Outpatient (BNVA) | payer OTHER, SELFPAY | PROVIDERS: PCP Internal Medicine; Visit Provider Internal Medicine Cardiovascular Disease | DX: I44.2 Atrioventricular block, complete (principal); I10 Essential (primary) hypertension; Z95.0 Presence of cardiac pacemaker | CPT/HCPCS: 99212 ==

== ENCOUNTER → 2024-07-08 23:59 | Outpatient (BNV) | payer OTHER, SELFPAY ==
--- NOTE | 2024-08-13 21:46 | MHC.OFFVIS ---
Intake Visit Reasons: Remote device check- Rodger Scient Allergies lisinopril Allergy (Unknown, Verified 03/13/23 11:12) cough oxycodone Allergy (Unknown, Verified 03/13/23 11:12) urticaria PFSH Surgical History History of toe surgery Pacemaker Hx of colonoscopy Family History Mother Lung cancer Father Brain aneurysm Brother Prostate cancer Sister Diabetes Social History Alcohol intake: current Alcohol intake frequency: a few times a week Alcohol type: hard liquor Patient Tobacco Use Status: Former Tobacco user Years Smoked: 20+ Office Procedures Cardiac Device Check Cardiac Device Check Details: PPM Battery 1.5 years V paced 100% No new alerts. [id number] Cardiac Device Interrogation, pacemaker Procedure code (CPT) selection complete Assessment & Plan Assessment & Plan (1) Pacemaker: Code(s): Z95.0 - Presence of cardiac pacemaker Category: Medical Plan Coding Level of Care Code Procedure Only Diagnoses Pacemaker Z95.0 CPT Codes Cardiac Device Check - Cardiac Device 12: [id number] Cardiac Device Interrogation, pacemaker ([id number])
== END ==
PROVIDERS: PCP Internal Medicine; Visit Provider Internal Medicine Cardiovascular Disease
DX: Z45.018 Encounter for adjustment and management of other part of cardiac pacemaker (principal)
CPT/HCPCS: 93294

== ENCOUNTER 2024-08-14 11:22 | Outpatient (AMB) | payer MEDICARE, SELFPAY ==
[2024-08-14 11:25] VITALS: BP 132/67; PULSE 77; RESP 16; TEMP 36.8; O2SAT 97; BMI 28.4
--- NOTE | 2024-08-14 11:25 | A.OFFPC_ITS ---
Vital Signs 08/14/24 11:25 Height 5 ft 8 in Weight 187 lb BMI 28.4 BP 132/67 Blood Pressure Location Rt brachial Position Sitting Respiration 16 Pulse 77 Pulse Source Pulse Oximeter Temp 98.3 F Temp Source Temporal Artery Scan Pulse Oximetry (%) 97 Oxygen Delivery Method Room Air Intake Visit Reasons: 6 Month Follow Up - see comments Portrait Painter Required: No Accompanied by: Self / Same As Patient Allergies lisinopril Allergy (Unknown, Verified 08/14/24 12:05) cough oxycodone Allergy (Unknown, Verified 08/14/24 12:05) urticaria Medication List - Last Reconciled 08/14/24 by Ijeoma Barrios PA-C amlodipine 5 mg PO DAILY aspirin (Adult Low Dose Aspirin) 81 mg PO DAILY atorvastatin 80 mg PO BEDTIME clobetasol 0.05% 1 appl topical DAILY finasteride 5 mg PO DAILY levothyroxine 50 mcg PO DAILY losartan 100 mg PO DAILY metformin 1,000 mg PO BID tamsulosin 0.4 mg PO DAILY vitamins A,C,C-zsqt-ataxpe 4,296 mcg-226 mg-90 mg (PreserVision AREDS) 1 cap PO BID Tobacco use date assessed: 08/14/24 Fall risk assessment: 2 + Falls in past year Last assessed Fall Risk: 08/14/24 Dental Screening Dental Screen Date: 08/14/24 Did you have a dental visit in the last 12 months?: Yes Did you have a dental problem in the last 6 months where you did not have access to dental care?: No Was dental information given to patient?: Patient has dentist HPI 6 Month Follow Up - see comments HPI Details The patient is a 79-year-old male presenting for a six-month follow-up for chronic medical conditions and to establish care after his previous primary care physician retired. He reports that despite having Type 2 Diabetes Mellitus, hypertension, and diabetic nephropathy, he was denied a nutritional grocery store program's insurance benefit. His Type 2 Diabetes Mellitus is managed with Metformin, and hypertension is controlled with Amlodipine and Losartan. He also receives treatment for Hyperlipidemia, Hypothyroidism, Diabetic Nephropathy, and Osteoarthritis, and has a history of Psoriasis and prior Lyme Carditis. He has experienced chronic low red blood cell and platelet counts, as noted in a routine bloodwork from October 2023. However, recent assessments in March 2024 showed normalization in these values. Concerns about low ferritin levels being linked to testosterone deficiency have prompted further evaluation, including an upcoming testosterone level test. His past medical background includes a complete heart block requiring pacemaker placement. He plans to address the discrepancy with the insurance company's program and adherence to medication requirements. The patient has regular follow-ups at the [facility] and requires integration of multi- site healthcare directives to streamline treatment and management of his multisystem chronic conditions. Social History - Retired from active employment; previo usly worked in the [employer] and laboratory settings. - No overt discussion about housing stat us. - ; was to a blood bank t echnician for 42 years. - No mention of substance use discussed. - Regular dietary patterns adjusted for health; plans to get nutritional programs through insurance benefits. - Evident from chronic health issues, ac tive management of health discussed, including exercise and weight management concerns. - [place] with reported history as a Com [employer] Medic. [facility] Medical History Lyme carditis Tubular adenoma Diabetic nephropathy Osteoarthritis Psoriasis Psoriatic arthritis Hypothyroidism Type 2 diabetes mellitus with hemoglobin A1c goal of less than 7.0% Pure hypercholesterolemia, unspecified Establishing care with new doctor, encounter for Surgical History (Updated 08/14/24 @ 12:22 by Ijeoma Barrios PA-C) History of toe surgery Pacemaker Hx of colonoscopy (~09/21/18) Family History Mother Lung cancer Father Brain aneurysm Brother Prostate cancer Sister Diabetes Social History (Updated 08/14/24 @ 11:43 by TONO Newton) Housing: House Alcohol intake: current Alcohol intake frequency: a few times a week Patient Tobacco Use Status: Former Tobacco user Years Smoked: 20+ e-Cigarette/Vaping Use: Former Use service: No Current occupational status: retired Cognitive needs: No Hearing needs: No Vision needs: Yes (rx glasses) Questionnaire PHQ-9 Over the last 2 weeks, how often have you been bothered by any of the following problems? 1. Little interest or pleasure in doing things: not at all 2. Feeling down, depressed, or hopeless: not at all 3. Trouble falling or staying asleep, or sleeping too much: not at all 4. Feeling tired or having little energy: not at all 5. Poor appetite or overeating: not at all 6. Feeling bad about yourself - or that you are a failure or have let yourself or your family down: not at all 7. Trouble concentrating on things, such as reading the newspaper or watching television: not at all 8. Moving or speaking so slowly that other people could have noticed. Or the opposite - being so fidgety or restless that you have been moving around a lot more than usual: not at all 9. Thoughts that you would be better off or of hurting yourself in some way: not at all Total score: 0 Depression Screening Interpretation: Negative Depression Screening Done: Yes 07930 - PHQ-9 Billing: Yes Source: Developed by Drs. Antonio Quiles, Cecelia Campos, Collin Monroy and colleagues, with an educational devin from [employer]. Thrive Questionnaire Currently or been in a relationship where the following occur: No concerns reported THRIVE Score: 0 AUDIT C Alcohol Use Questionnaire (AUDIT-C) 1. How often do you have a drink containing alcohol?: 2-3 times a week 2. How many drinks containing alcohol do you have on a typical day when you are drinking?: 1 or 2 3. How often do you have six or more drinks on one occasion?: Never Total Score: 3 Score Reviewed/Action Taken: No Review of Systems Const Details: - Cardiovascular: Denies current chest pain, shortness of breath, or leg swelling. - Gastrointestinal: Denies abdominal pain, black or bloody stools, and unintentional weight changes. - Musculoskeletal: Reports osteoporosis; no other musculoskeletal complaints discussed. - Neurological: No recent falls; denies dizziness or loss of consciousness. - Skin: Reports psoriasis; no new skin lesions discussed. - Endocrine: Denial of chest pain or severe hypo/hyperglycemic episodes discussed. Physical exam (Primary Care) Vital Signs: Last Vital Signs Temp 98.3 F 08/14/24 11:25 Pulse 77 08/14/24 11:25 Resp 16 08/14/24 11:25 BP 146/84 H 08/14/24 11:25 Pulse Ox 97 08/14/24 11:25 Oxygen Delivery Method Room Air 08/14/24 11:25 Care Plan Goal for BP management: <140/90 at Goal BMI result Body Mass Index 28.4 BMI Assessment/Plan discussion: High BMI High, discussed plan: lifestyle, weight reduction, dietary, physical activity and alcohol moderation Tobacco/Smoking Status: Tobacco use Status Tobacco use date assessed 08/14/24 08/14/24 11:31 Patient Tobacco Use Status Former Tobacco user 08/14/24 11:43 e-Cigarette/Vaping Use Former Use 08/14/24 11:43 PHQ-9: PHQ-9 Score PHQ-9: Total score 0 08/14/24 12:07 Depression Screening Interpretation: Negative Thrive Assessment: Date of Thrive Assessment Date Thrive assessed 08/14/24 11:44 Currently or been in a relationship where the following occur: No concerns reported Const Other: Appearance: Alert. Oriented X3. No acute distress. Head: Normal external exam. Normocephalic. Atraumatic. Eyes: Pupils are equal, round, and reactive to light. Extraocular movements intact. Conjunctiva and sclera normal. Eyelids normal. Ears: External auditory canal normal. Tympanic membranes normal. Throat: Pharynx normal. Uvula midline. Moist mucous membranes. Neck: Normal inspection. Neck supple. Full range of motion. No adenopathy. Thyroid Normal. No meningeal signs. No neck mass noted. Cardiovascular: Normal heart rate and rhythm. Heart sound normal. No murmurs noted. Pulses normal throughout. Blood pressure is 130/62. Respiratory: No respiratory distress. Painless inspiration. Breath sounds normal. No wheezes/rales/rhonchi noted. Chest nontender. No accessory muscle usage noted or decreased air movement noted. Abdomen: Soft and nontender. Bowel sounds normal in all 4 quadrants. No distention noted. No organomegaly noted. No visible injury noted. Back: No costovertebral angle tenderness. Full range of motion noted. Skin: Skin warm and dry. Normal skin color. Normal skin turgor. No rashes/lesions/lacerations noted. Extremities: No lower extremity edema. Extremities exhibit normal range of motion. Extremities nontender. No leg swelling or calf pain noted. Neuro: Oriented X 3. No motor deficit. No sensory deficit. Reflexes normal. No recent falls reported. Results Reviewed Results Reviewed: - Labs: Normal red and white blood cell counts from March 2024, BUN at 18, and a creatinine level of 1.2 with GFR of 66. Previous reports of low-force chromatography. - Tests: Awaiting testosterone levels and hemoglobin A1c. Coding Level of Care Code New Pt Level 4 (54010) Complex EM visit Add On G2211 Diagnoses Establishing care with new doctor, encounter for Z76.89 Essential hypertension I10 Hypertension type: essential hypertension Type 2 diabetes mellitus with hemoglobin A1c goal of less than 7.0% E11.9 Hypothyroidism E03.9 Diabetic nephropathy E11.21 Psoriasis L40.9 Osteoarthritis M19.90 Pure hypercholesterolemia, unspecified E78.00 CHB (complete heart block) I44.2 Lyme carditis A69.29 Additional Codes PHQ-9 - 12591 - PHQ-9 Billing: Yes ([id number]) Assessment & Plan Assessment & Plan (1) Establishing care with new doctor, encounter for: Code(s): Z76.89 - Persons encountering health services in other specified circumstances Category: Medical (2) Hypertension: Comment: Stable Code(s): I10 - Essential (primary) hypertension Category: Medical Qualifiers: Hypertension type: essential hypertension Qualified Code(s): I10 - Essential (primary) hypertension Plan: Continue Amlodipine 5 mg daily and Losartan, maintaining current control levels. Condition is chronic and stable continue to monitor. (3) Type 2 diabetes mellitus with hemoglobin A1c goal of less than 7.0%: Code(s): E11.9 - Type 2 diabetes mellitus without complications Category: Medical Plan: Continued Metformin; plan HbA1c testing moving forward. Condition is chronic and stable continue to monitor. (4) Hypothyroidism: Code(s): E03.9 - Hypothyroidism, unspecified Category: Medical Plan: Maintain Levothyroxine regimen with follow-up TSH. Condition is chronic and stable continue to monitor. (5) Diabetic nephropathy: Code(s): E11.21 - Type 2 diabetes mellitus with diabetic nephropathy Category: Medical Plan: Continue monitoring via routine renal function lab tests. Condition is chronic and stable continue to monitor. (6) Psoriasis: Code(s): L40.9 - Psoriasis, unspecified Category: Medical Plan: Continue topical management and monitor. Condition is chronic and stable continue to monitor. (7) Osteoarthritis: Code(s): M19.90 - Unspecified osteoarthritis, unspecified site Category: Medical Plan: Continue analgesics; consider adjunctive physical therapy. Condition is chronic and stable continue to monitor. (8) Pure hypercholesterolemia, unspecified: Code(s): E78.00 - Pure hypercholesterolemia, unspecified Category: Medical Plan: Continue Atorvastatin; monitor cholesterol. Condition is chronic and stable continue to monitor. (9) CHB (complete heart block): Comment: He is status post permanent pacemaker placement. Code(s): I44.2 - Atrioventricular block, complete Category: Medical Plan: Routine checks on pacemaker function necessary. Condition is chronic and stable continue to monitor. 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 Condition is chronic and stable will continue to monitor. Plan Plan Patient was informed and verbally consented to the use of an ambient scribe for clinic note documentation during this visit. 1. Hypertension Continue Amlodipine 5 mg daily and Losartan, maintaining current control levels. 2. Type 2 Diabetes Mellitus Continued Metformin; plan HbA1c testing moving forward. 3. Hypothyroidism Maintain Levothyroxine regimen with follow-up TSH. 4. Diabetic Nephropathy Continue monitoring via routine renal function lab tests. 5. Psoriasis Continue topical management and monitor. 6. Osteoarthritis Continue analgesics; consider adjunctive physical therapy. 7. Hyperlipidemia Continue Atorvastatin; monitor cholesterol. 8. Complete Heart Block, Status Post-Pacemaker Routine checks on pacemaker function necessary. 9. Lyme Carditis Observational only; stable post-treatment. I discussed the patient's multiple chronic conditions such as hypertension, Type 2 Diabetes, and diabetic nephropathy, emphasizing the importance of strict management through medication adherence, diet, and exercise. We reviewed the continuing problem of insurance denial for a nutritional program designed to support his diagnosed conditions, advising follow-up regarding potential eligibility based on documented medical history. I clarified the plan to monitor blood glucose and liver functions while ensuring existing pacemaker management includes routine checks. We reviewed the labs to be drawn, including testosterone levels to address the patient?s concern about ferritin levels possibly affecting or being affected by low testosterone. We spent time discussing available program benefits and the logistics of contacting insurance to determine eligibility. Offered instructions on coordinating future healthcare follow-ups with the new primary care format, scheduling lab work as discussed, including any additional upcoming procedures such as colonoscopy. Orders: Orders Dihydrotestosterone Today Z00.00 - Encounter for general adult medical examination without abnormal findings Testosterone, Total Today Z00.00 - Encounter for general adult medical examination without abnormal findings DHEA Sulfate Today Z00.00 - Encounter for general adult medical examination without abnormal findings Testosterone, Free/Total Today Z00.00 - Encounter for general adult medical examination without abnormal findings Patient Instructions: - Continue taking all prescribed medications as instructed. - Follow up with lab work tomorrow while fasting if able; remember no food or drink except water for 12 hours before your labs. - Monitor your blood pressure regularly and log readings. - Report any new symptoms or worsening of current conditions promptly. - Schedule and attend wellness exams and necessary procedures, including a colonoscopy with Dr. Pugh next month. - Follow dietary recommendations for diabetes management; check eligibility for the nutritional program with your insurance provider. - Contact insurance regarding the wellness visit coverage and nutritional program benefits. - Return for a follow-up appointment in three months.
== END 2024-08-14 12:27 | disposition home or self-care (01) ==
LOC: HO.HMCSH 11:22
PROVIDERS: PCP Internal Medicine; Visit Provider Physician Assistant Medical
DX: Z76.89 Persons encountering health services in other specified circumstances (principal); I10 Essential (primary) hypertension; E03.9 Hypothyroidism, unspecified; E11.21 Type 2 diabetes mellitus with diabetic nephropathy; L40.9 Psoriasis, unspecified; M19.90 Unspecified osteoarthritis, unspecified site; E78.00 Pure hypercholesterolemia, unspecified; I44.2 Atrioventricular block, complete; A69.29 Other conditions associated with Lyme disease

== ENCOUNTER → 2024-08-14 11:22 | Outpatient (BNVA) | payer MEDICARE, SELFPAY | PROVIDERS: PCP Internal Medicine; Visit Provider Physician Assistant Medical | DX: E11.21 Type 2 diabetes mellitus with diabetic nephropathy (principal); I10 Essential (primary) hypertension; E78.5 Hyperlipidemia, unspecified; E03.9 Hypothyroidism, unspecified; L40.9 Psoriasis, unspecified; M19.90 Unspecified osteoarthritis, unspecified site; E78.00 Pure hypercholesterolemia, unspecified; I44.2 Atrioventricular block, complete; A69.29 Other conditions associated with Lyme disease; Z95.0 Presence of cardiac pacemaker; Z79.84 Long term (current) use of oral hypoglycemic drugs | CPT/HCPCS: 96127; 99202 ==

== ENCOUNTER 2024-08-15 10:06 | Outpatient (REF) | payer MEDICARE, SELFPAY ==
[2024-08-15 13:33] LABS: MANUAL DIFF FLAG NO
[2024-08-15 13:39] LABS: Basophils Percent Auto 0.8 % (0-2); Eosinophils Absolute Auto 0.2 X10*3/uL (0.0-0.4); Hematocrit 46.8 % (42.0-52.0); Hemoglobin 15.4 g/dl (14.0-18.0); Imm Gran Abs Auto 0.01 X10*3/uL (0.00-0.03); Imm Gran Pct Auto 0.2 % (0.0-0.4); Lymphocytes Absolute Auto 1.5 X10*3/uL (1.2-4.9); Lymphocytes Percent Auto 28.5 % (20-40); Mean Corpuscular HGB Conc 32.9 g/dl (31.0-36.0); Mean Corpuscular Hemoglobin 29.2 pg (27.0-33.0); Mean Corpuscular Volume 88.8 fL (80.0-98.0); Mean Platelet Volume 12.5 fL (9.4-12.4); Monocytes Absolute Auto 0.4 X10*3/uL (0.1-1.2); Monocytes Percent Auto 7.7 % (2-11); Neutrophils Absolute Auto 3.1 x10*3/uL (2.0-8.3); Neutrophils Percent Auto 58.8 % (45-73); Platelet Count 173 X10*3/uL (160-400); Red Blood Count 5.27 X10*6/uL (4.60-5.80); Red Cell Distribution Width 15.4 % (11.0-16.0); White Blood Count 5.2 X10*3/uL (4.8-10.8)
[2024-08-15 13:48] LABS: Creatinine Urine 74.45 mg/dL; Microalbum/Creatinine Ratio Ur 232.3 ug/mg cr (<30)
[2024-08-15 13:55] LABS: Estimated Average Glucose 108 mg/dL; Hemoglobin A1c % 5.4 % (<6.0)
[2024-08-15 14:07] LABS: PSA,Total (Free>4and<10) 0.68 ng/mL (0.00-4.00)
[2024-08-15 14:12] LABS: Alanine Aminotransferase 38 U/L (0-40); Albumin Level 4.7 g/dL (3.5-5.0); Alkaline Phosphatase 107 U/L (39-117); Anion Gap 12 (12-20); Aspartate Amino Transferase 32 U/L (5-37); Bilirubin Direct 0.2 mg/dL (0.0-0.5); Bilirubin Total 0.6 mg/dL (0.0-1.0); Blood Urea Nitrogen 15 mg/dL (9-16); C Reactive Protein < 0.10 mg/dL (< or = 0.50); Calcium 9.8 mg/dL (8.4-10.2); Carbon Dioxide 24 mmol/L (22-29); Chloride 109 mmol/L (96-108); Cholesterol 125 mg/dL (<200); Estimated Glomerular Filt Rate > 60; Glucose Fasting 86 mg/dL (60-99); HDL Cholesterol 58 mg/dL (>40); LDL Cholesterol Calculated 53 mg/dL (<100); Magnesium 2.2 mg/dL (1.6-2.6); Potassium 4.6 mmol/L (3.3-5.1); Sodium 140 mmol/L (135-145); Total Protein 7.2 g/dL (6.5-8.0); Triglycerides 71 mg/dL (<150)
[2024-08-15 14:15] LABS: TSH reflex Free T4 3.22 uIU/mL (0.32-4.0); Vitamin D 25-OH Total 51.7 ng/mL (>30)
[2024-08-15 14:19] LABS: Vitamin B12 479 pg/mL (200-900)
[2024-08-16 04:54] LABS: DHEA Sulfate 57 mcg/dL (3-225)
[2024-08-21 22:24] LABS: Dihydrotestosterone 7 ng/dL (12-65)
[2024-09-09 11:43] LABS: Testosterone, Total 352 ng/dL (250-1100)
== END 2024-08-15 10:07 | disposition home or self-care (01) ==
LOC: HO.HMGCLDS 10:06
PROVIDERS: PCP Internal Medicine; Visit Provider Physician Assistant Medical
DX: E11.9 Type 2 diabetes mellitus without complications (principal); Z00.00 Encounter for general adult medical examination without abnormal findings; Z12.5 Encounter for screening for malignant neoplasm of prostate
CPT/HCPCS: 36415; 80053; 80061; 80076; 82043; 82248; 82306; 82570; 82607; 82627; 82642; 82746; 83036; 83735; 84153; 84402; 84403; 84443; 85025; 86140

== ENCOUNTER 2024-09-23 10:45 | Day surgery (SDC) | payer OTHER, SELFPAY ==
[2024-09-19 16:22] VITALS: BMI 28.7
--- NOTE | 2024-09-20 08:31 | HO.ANESPROP2 ---
HPI - Anesthesia Eval Consult details Narrative: 79yo M for Colonoscopy Pacer in situ (CHB) Follows [facility]. Stable at 05/2024 office visit for routine 6 month f/u Anesthesia Pre-Procedure Meds Is the patient on any of the following meds?: SGLT2 Inhib PMFSH Active Problems Active Problems: All Active Problems Hyperkalemia (Acute) Hypertension (Acute) RBBB (Acute) Pacemaker (Acute) CHB (complete heart block) (Acute) Lyme carditis (Acute) Tubular adenoma (Acute) Diabetic nephropathy (Acute) Osteoarthritis (Acute) Psoriasis (Acute) Psoriatic arthritis (Acute) Hypothyroidism (Acute) Type 2 diabetes mellitus with hemoglobin A1c goal of less than 7.0% (Acute) Pure hypercholesterolemia, unspecified (Acute) Establishing care with new doctor, encounter for (Acute) Past Medical History Medical History SARAI on CPAP Hypothyroidism HLD (hyperlipidemia) HTN (hypertension) Diabetes Diverticulosis Lyme carditis Tubular adenoma Diabetic nephropathy Osteoarthritis Psoriasis Psoriatic arthritis Hypothyroidism Type 2 diabetes mellitus with hemoglobin A1c goal of less than 7.0% Pure hypercholesterolemia, unspecified Establishing care with new doctor, encounter for Family History Family History Mother Lung cancer Father Brain aneurysm Brother Prostate cancer Sister Diabetes Surgical History Surgical History History of toe surgery Pacemaker Hx of colonoscopy (~09/21/18) Social History Social History Housing: House Do you presently have visiting nurse or other home services: No Alcohol intake: current Alcohol intake frequency: a few times a week Patient Tobacco Use Status: Former Tobacco user Years Smoked: 20+ e-Cigarette/Vaping Use: Former Use Have you been hit, kicked, punched, or otherwise hurt by someone within the past year? If so, by whom?: No Are you DNR?: No Advance Directives: No Advance Directives Information Provided: Yes Poor oral hygiene: No service: No Current occupational status: retired Cognitive needs: No Hearing needs: No Vision needs: Yes (rx glasses) Meds Allergies Allergy/AdvReac Type Severity Reaction Status Date / Time lisinopril Allergy Unknown cough Verified 09/23/24 12:03 oxycodone Allergy Unknown urticaria Verified 09/23/24 12:03 Home Medications ?Medication ?Instructions ?Recorded ?Confirmed ?Last Taken ?Type aspirin 81 mg tablet,delayed 81 mg PO DAILY 04/15/20 09/19/24 09/16/24 History release (Adult Low Dose Aspirin) finasteride 5 mg tablet 5 mg PO DAILY 04/15/20 09/19/24 Unknown History levothyroxine 50 mcg capsule 50 mcg PO DAILY 04/15/20 09/19/24 Unknown History metformin 1,000 mg tablet 1,000 mg PO BID 04/15/20 09/19/24 Unknown History tamsulosin 0.4 mg capsule 0.4 mg PO DAILY 04/15/20 09/19/24 Unknown History vitamins A,C,S-yqgh-esbpmc 4,296 1 cap PO BID 04/15/20 09/23/24 Unknown History mcg-226 mg-90 mg capsule (PreserVision AREDS) amlodipine 5 mg tablet 5 mg PO DAILY 04/05/21 09/19/24 09/23/24 History atorvastatin 80 mg tablet 80 mg PO BEDTIME 12/13/23 09/19/24 Unknown History empagliflozin 10 mg tablet 10 mg PO DAILY 09/19/24 09/19/24 09/19/24 History (Jardiance) losartan 100 mg tablet 100 mg PO DAILY 09/27/24 Unknown History Exam Height,Weight and Vital Signs: Height 5 ft 7.5 in Weight 84.368 kg Pertinent Lab Results Pertinent Lab Results: Laboratory Tests 08/15/24 10:17 WBC 5.2 Hgb 15.4 Hct 46.8 Plt Count 173 Sodium 140 Potassium 4.6 Chloride 109 H Carbon Dioxide 24 BUN 15 Creatinine 0.99 Narrative Narrative: ECHO 09/2023 Conclusions: - Normal left ventricular size and systolic function. There is mildly increased left ventricular wall thickness. The visually estimated ejection fraction is between 55-60%. - Normal right ventricular cavity size and systolic function. - There is mild dilatation of the sinuses of Valsalva measuring 4.14 cm and mild dilatation of the ascending aorta measuring 3.80 cm. EKG 09/2023 Details: Sinus rhythm 71 beats per minute, leftward axis, incomplete right bundle-branch block, can not rule out anteroseptal infarct, QTC 425 milliseconds. [id number], Complete Assessment and Plan Assessment Anesthesia Assessment: Chart Reviewed
[2024-09-23] MEDS: Lactated Ringers 1,000 ML 100 ML IVCONT (11:58)
[2024-09-23 12:00] LABS: Glucose, Whole Blood 79 mg/dL (60-115)
[2024-09-23 12:01] VITALS: BMI 27.9
[2024-09-23 12:18] VITALS: BP 150/81; PULSE 63; RESP 18; TEMP 36.6; O2SAT 100
--- NOTE | 2024-09-23 12:27 | HO.ANESPROP2 ---
[facility] Active Problems Active Problems: All Active Problems (Updated 09/19/24 @ 16:25 by Maria Isabel Womack RN) Hyperkalemia (Acute) Hypertension (Acute) RBBB (Acute) Pacemaker (Acute) CHB (complete heart block) (Acute) Lyme carditis (Acute) Tubular adenoma (Acute) Diabetic nephropathy (Acute) Osteoarthritis (Acute) Psoriasis (Acute) Psoriatic arthritis (Acute) Hypothyroidism (Acute) Type 2 diabetes mellitus with hemoglobin A1c goal of less than 7.0% (Acute) Pure hypercholesterolemia, unspecified (Acute) Establishing care with new doctor, encounter for (Acute) Past Medical History Medical History SARAI on CPAP Hypothyroidism HLD (hyperlipidemia) HTN (hypertension) Diabetes Diverticulosis Lyme carditis Tubular adenoma Diabetic nephropathy Osteoarthritis Psoriasis Psoriatic arthritis Hypothyroidism Type 2 diabetes mellitus with hemoglobin A1c goal of less than 7.0% Pure hypercholesterolemia, unspecified Establishing care with new doctor, encounter for Functional capacity: independent ambulation Family History Family History Mother Lung cancer Father Brain aneurysm Brother Prostate cancer Sister Diabetes Family history of problems with anesthesia: No Surgical History Surgical History History of toe surgery Pacemaker Hx of colonoscopy (~09/21/18) History of Problems with Anesthesia: No Social History Social History Housing: House Do you presently have visiting nurse or other home services: No Alcohol intake: current Alcohol intake frequency: a few times a week Patient Tobacco Use Status: Former Tobacco user Years Smoked: 20+ e-Cigarette/Vaping Use: Former Use Have you been hit, kicked, punched, or otherwise hurt by someone within the past year? If so, by whom?: No Are you DNR?: No Advance Directives: No Advance Directives Information Provided: Yes Poor oral hygiene: No service: No Current occupational status: retired Cognitive needs: No Hearing needs: No Vision needs: Yes (rx glasses) Meds Allergies Allergy/AdvReac Type Severity Reaction Status Date / Time lisinopril Allergy Unknown cough Verified 09/23/24 12:03 oxycodone Allergy Unknown urticaria Verified 09/23/24 12:03 Active Medications: Current Medications Lactated Ringer's (Lr) 1,000 mls @ 100 mls/hr IVCONT .Q10H MARICRUZ Last Admin: 09/23/24 11:58 Dose: 100 mls/hr Sodium Biphosphate/Sodium Phosphate (Sodium Phosphate,[place]-Dibasic 133 Ml Enema) 133 ml NV ONCE PRN PRN Reason: Poor Colonoscopy Prep Results Home Medications ?Medication ?Instructions ?Recorded ?Confirmed ?Last Taken ?Type aspirin 81 mg tablet,delayed 81 mg PO DAILY 04/15/20 09/19/24 09/16/24 History release (Adult Low Dose Aspirin) finasteride 5 mg tablet 5 mg PO DAILY 04/15/20 09/19/24 Unknown History levothyroxine 50 mcg capsule 50 mcg PO DAILY 04/15/20 09/19/24 Unknown History metformin 1,000 mg tablet 1,000 mg PO BID 04/15/20 09/19/24 Unknown History tamsulosin 0.4 mg capsule 0.4 mg PO DAILY 04/15/20 09/19/24 Unknown History vitamins A,C,Q-zdbl-tfkbfg 4,296 1 cap PO BID 04/15/20 09/23/24 Unknown History mcg-226 mg-90 mg capsule (PreserVision AREDS) amlodipine 5 mg tablet 5 mg PO DAILY 04/05/21 09/19/24 09/23/24 History atorvastatin 80 mg tablet 80 mg PO BEDTIME 12/13/23 09/19/24 Unknown History empagliflozin 10 mg tablet 10 mg PO DAILY 09/19/24 09/19/24 09/19/24 History (Jardiance) Exam Height,Weight and Vital Signs: Height 5 ft 7.5 in Weight 82 kg Last Vital Signs Temp 97.9 F 09/23/24 12:18 Pulse 63 09/23/24 12:18 Resp 18 09/23/24 12:18 BP 150/81 H 09/23/24 12:18 Pulse Ox 100 09/23/24 12:18 O2 Del Method Room Air 09/23/24 12:18 Pertinent Lab Results Pertinent Lab Results: Laboratory Tests 09/23/24 11:51 POC Glucose 79 Airway Mallampati Class: II TM Dist: >3cm Neck ROM: Full Heart: RRR Lungs: CTA Assessment and Plan Assessment Anesthesia Assessment: Anesthesia Plan Discussed Final Anesthetic Review Family History of Problems with Anesthesia: No History of Problems with Anesthesia: No NPO: Yes ASA Class: III Final Preanesthetic Review: Meds/Allgs Chart Reviewed, Consent Obtained/Reviewed and Anes Risks/Benef Reviewed Patient Risk: Intermediate Procedure Risk: Low Anesthetic Plan Anesthetic Plan: MAC: Disposition: Standard PACU
[2024-09-23 14:05] VITALS: BP 107/65; PULSE 60; RESP 16; TEMP 36.1; O2SAT 96
--- NOTE | 2024-09-23 14:10 | P.BOP_ITS ---
Brief Operative Note Date of Service: 09/23/24 Pre-op diagnosis: Screening Post-op diagnosis: other (Polyps) Procedure: Colonoscopy to the cecum and TI with bx/removal of polyp, and hot snare polypectomy of rectal polyp Surgeon: Antonio Pugh MD Anesthesia: MAC Was an [employer] Representative used for this Procedure?: No Estimated blood loss (mL): 2.0 Pathology: other (A. Transverse colon polyp B. Rectal polyp) Condition: stable Disposition: PACU
[2024-09-23 14:19] VITALS: BP 118/64; PULSE 60; RESP 16; O2SAT 98
[2024-09-23 14:32] VITALS: BP 119/70; PULSE 60; RESP 16; TEMP 36.2; O2SAT 96
--- NOTE | 2024-09-23 14:56 | OP_ITS ---
DATE OF SERVICE: 09/23/2024 SURGEON: Antonio Pugh MD INDICATIONS: The patient presents for evaluation of colorectal cancer screening and personal history of tubular adenoma of the colon. Full consent has been obtained from him for this, including risks of bleeding and perforation. PREOPERATIVE DIAGNOSIS: POSTOPERATIVE DIAGNOSIS: PROCEDURE PERFORMED: Colonoscopy to the cecum and terminal ileum with biopsy and removal of polyp, and hot snare polypectomy x1. ESTIMATED BLOOD LOSS: COMPLICATIONS: ANESTHESIA: Medication used, monitored anesthesia care. ASSISTANTS: SPECIMENS: PREOPERATIVE DIAGNOSES: Colorectal cancer screening and personal history of tubular adenoma of the colon. POSTOPERATIVE DIAGNOSES: Colorectal cancer screening and personal history of tubular adenoma of the colon, colon polyps, diverticulosis, and internal hemorrhoids. DESCRIPTION OF PROCEDURE: The patient was placed in the left lateral decubitus position. The digital rectal exam revealed no abnormalities. The Olympus video pediatric colonoscope was entered into the rectum and advanced easily to the cecum. Once in the cecum, I did identify normal-appearing cecal pouch with appendiceal orifice and a normal-appearing ileocecal valve. The terminal ileum was cannulated and appeared normal. The scope was withdrawn back in the colon. The entire cecum and ileocecal valve appeared normal. The scope was slowly withdrawn assessing all mucosal surfaces carefully. Preparation was good although did require a fair amount of irrigation and suctioning. Once all that was done, I obtained a very good inspection of the colon. In the transverse colon was a flat, approximately 3 mm polyp, which was biopsied and completely removed with a cold biopsy forceps. In the rectum was an approximately 10 mm polyp, which was removed by hot snare polypectomy, recovered by suction. The polypectomy site appeared clean, without any sign of residual polyp nor bleeding. I did not visualize any other polyps, colitis, nor angiodysplasia. There was a mild amount of sigmoid diverticulosis. In the rectum, scope was retroflexed visualizing internal hemorrhoids, but no other pathology. The scope was straightened and withdrawn from the patient. He tolerated the procedure well and was returned to the recovery area in stable condition. IMPRESSION: 1. Colon polyps. 2. Diverticulosis. 3. Internal hemorrhoids. PLAN: The results of the pathology will be checked. Given these findings and his age, I do not think he would need any further screening colonoscopies. He was advised not to use any aspirin and NSAIDs for 1 week. He will otherwise see me on a p.r.n. basis. MD MARTIN Walters/JOEY / [phone]
== END 2024-09-23 15:04 | disposition home or self-care (01) ==
PROVIDERS: PCP Internal Medicine; Visit Provider Internal Medicine
PROC: 0DJD8ZZ Inspection of Lower Intestinal Tract, Via Natural or Artificial Opening Endoscopic (ICD-10-PCS; CPT 45378; principal; 2024-09-23 11:40)
DX: Z12.11 Encounter for screening for malignant neoplasm of colon (principal); Z86.0101 Personal history of adenomatous and serrated colon polyps; D12.3 Benign neoplasm of transverse colon; D12.8 Benign neoplasm of rectum; K57.30 Diverticulosis of large intestine without perforation or abscess without bleeding; K64.8 Other hemorrhoids; G47.33 Obstructive sleep apnea (adult) (pediatric); E11.40 Type 2 diabetes mellitus with diabetic neuropathy, unspecified; E78.5 Hyperlipidemia, unspecified; E03.9 Hypothyroidism, unspecified; M19.90 Unspecified osteoarthritis, unspecified site; Z95.0 Presence of cardiac pacemaker; Z79.84 Long term (current) use of oral hypoglycemic drugs; Z79.82 Long term (current) use of aspirin; Z79.899 Other long term (current) drug therapy; Z99.89 Dependence on other enabling machines and devices; Z88.8 Allergy status to other drugs, medicaments and biological substances; Z88.5 Allergy status to narcotic agent
CPT/HCPCS: 45385; 45380; 82947; 88305; J2003; J2704

== ENCOUNTER → 2024-10-07 23:59 | Outpatient (BNV) | payer MEDICARE, SELFPAY ==
--- NOTE | 2024-10-20 20:33 | MHC.OFFVIS ---
Intake Visit Reasons: Remote device check- Rodger Scient Allergies lisinopril Allergy (Unknown, Verified 09/23/24 12:03) cough oxycodone Allergy (Unknown, Verified 09/23/24 12:03) urticaria PFSH Medical History SARAI on CPAP Hypothyroidism HLD (hyperlipidemia) HTN (hypertension) Diabetes Diverticulosis Lyme carditis Tubular adenoma Diabetic nephropathy Osteoarthritis Psoriasis Psoriatic arthritis Hypothyroidism Type 2 diabetes mellitus with hemoglobin A1c goal of less than 7.0% Pure hypercholesterolemia, unspecified Establishing care with new doctor, encounter for Surgical History History of toe surgery Pacemaker Hx of colonoscopy (~09/21/18) Family History Mother Lung cancer Father Brain aneurysm Brother Prostate cancer Sister Diabetes Social History Housing: House Do you presently have visiting nurse or other home services: No Alcohol intake: current Alcohol intake frequency: a few times a week Patient Tobacco Use Status: Former Tobacco user Years Smoked: 20+ e-Cigarette/Vaping Use: Former Use Have you been hit, kicked, punched, or otherwise hurt by someone within the past year? If so, by whom?: No Are you DNR?: No Advance Directives: No Advance Directives Information Provided: Yes Poor oral hygiene: No service: No Current occupational status: retired Cognitive needs: No Hearing needs: No Vision needs: Yes (rx glasses) Office Procedures Cardiac Device Check Cardiac Device Check Details: PPM Battery 2.5 year [employer] 100% No new alerts. [id number] Cardiac Device Interrogation, pacemaker Procedure code (CPT) selection complete Assessment & Plan Assessment & Plan (1) CHB (complete heart block): Comment: He is status post permanent pacemaker placement. Code(s): I44.2 - Atrioventricular block, complete Category: Medical Plan Coding Level of Care Code Procedure Only Diagnoses CHB (complete heart block) I44.2 CPT Codes Cardiac Device Check - Cardiac Device 12: [id number] Cardiac Device Interrogation, pacemaker ([id number])
== END ==
PROVIDERS: PCP Internal Medicine; Visit Provider Internal Medicine Cardiovascular Disease
DX: I44.2 Atrioventricular block, complete (principal); Z95.0 Presence of cardiac pacemaker
CPT/HCPCS: 93294

== ENCOUNTER 2024-11-19 11:24 | Outpatient (AMB) | payer MEDICARE, SELFPAY ==
--- NOTE | 2024-11-19 11:37 | A.OFFVIS_ITS ---
Intake Vital Signs 11/19/24 11:40 Height 5 ft 8 in Weight 184 lb BMI 28.0 BP 139/65 Respiration 14 Pulse 78 Pulse Source Pulse Oximeter Temp 97.8 F Temp Source Temporal Artery Scan Pulse Oximetry (%) 98 Oxygen Delivery Method Room Air Intake Visit Reasons: Wellness visit AWG G0438 Household Assistant Required: No Accompanied by: Self / Same As Patient Allergies lisinopril Allergy (Unknown, Verified 11/19/24 11:46) cough oxycodone Allergy (Unknown, Verified 11/19/24 11:46) urticaria Medication List - Last Reconciled 11/19/24 by Ijeoma Barrios PA-C amlodipine 5 mg PO DAILY ascorbic acid (vitamin C) mg PO aspirin (Adult Low Dose Aspirin) 81 mg PO DAILY atorvastatin 80 mg PO BEDTIME docusate sodium (Colace) 100 mg PO DAILY empagliflozin (Jardiance) 10 mg PO DAILY finasteride 5 mg PO DAILY levothyroxine 50 mcg PO DAILY losartan 100 mg PO DAILY metformin 1,000 mg PO BID tamsulosin 0.4 mg PO DAILY vitamins A,C,R-neax-gileft 4,296 mcg-226 mg-90 mg (PreserVision AREDS) 1 cap PO BID Do you need a note to return to daycare/school/sports/work: No HPI Wellness visit AWG G0438 HPI Details The patient is a 79-year-old male presenting with an annual wellness visit. The patient has a history of psoriatic arthritis, diagnosed by a tailing machine operator at the [facility]. The inside steward/stewardess recommended Tremfya, but the patient is concerned about side effects such as injection site inflammation and cardiovascular risks. The patient also has a history of post-traumatic stress disorder (PTSD), which causes stress when triggered. He has not been seeing a psychiatrist or therapist recently. Social History - Exercise: Engages in daily physical ac tivity, including housework and walking the dog. - Dental care: Brushes and flosses twice daily, but currently without a dentist due to group home. - Safety: Home equipped with grab bars a nd raised toilet seat; uses seatbelt regularly. - [place]: Manages daily activities independently, including bathing, dressing, and managing finances. HPI Comments History of Present Illness Details Patient is here for an Annual Wellness Visit today. List of all patient's Health Care Provider's PCP- Ijeoma Barrios PA-C and Dr. Mell Winchester at the [facility] Manufacturing Project Engineer- Dr Jain Voice Pathologist- At [facility] Anodiser- Dr. Pugh Reviewed past medical history- yes Reviewed surgical / hospitalization history- yes Reviewed family history- yes Reviewed current medications- yes Review all current providers patient is actively being followed by- yes Risk Factors Do exercise? yes house work exercise How many days per week? 7 Minutes per episode question? 1 hour daily Do de [place] regularly? yes Do go to the dentist yearly? yes or every 6 months? yes Do use a seatbelt in the vehicle? yes Sexual health: Do you use protection such as condom's? No recently, although does use condom's Home safety Throw rugs? No. Safe pads instead. Grab bars? yes all over house Raised toilet seat? yes Working smoke detectors? yes Fall risk assessment Fall risk? No fall risk Have you had any falls with injuries in the past year? None Have you had 2 or more falls in the past year? None Fall risk assessment: No fall risk FOR[facility]LY [facility], [facility] Medical History (Updated 11/19/24 @ 14:15 by Ijeoma Barrios PA-C) PTSD (post-traumatic stress disorder) Annual wellness visit SARAI on CPAP Hypothyroidism HLD (hyperlipidemia) HTN (hypertension) Diabetes Diverticulosis Lyme carditis Tubular adenoma Diabetic nephropathy Osteoarthritis Psoriasis Psoriatic arthritis Hypothyroidism Type 2 diabetes mellitus with hemoglobin A1c goal of less than 7.0% Pure hypercholesterolemia, unspecified Establishing care with new doctor, encounter for Surgical History (Updated 11/19/24 @ 14:14 by Ijeoma Barrios PA-C) History of toe surgery Pacemaker Hx of colonoscopy (~10/01/18) Family History Mother Lung cancer Father Brain aneurysm Brother Prostate cancer Sister Diabetes Social History Housing: House Do you presently have visiting nurse or other home services: No Alcohol intake: current Alcohol intake frequency: a few times a week Patient Tobacco Use Status: Former Tobacco user Years Smoked: 20+ e-Cigarette/Vaping Use: Former Use service: No Current occupational status: retired Cognitive needs: No Hearing needs: No Vision needs: Yes (rx glasses) Questionnaire Medicare Wellness Checkup [age] What gender do you identify with?: male During the past 4 weeks, how much have you been bothered by emotional problems such as feeling anxious, depressed, irritable, sad or downhearted, and blue?: slightly During the past 4 weeks, has your physical & emotional health limited your social activities with family, friends, neighbors, or groups?: slightly During the past 4 weeks, how much bodily pain have you generally had?: very mild pain During the past 4 weeks, was someone available to help you if you needed & wanted help?: no, not at all During the past 4 weeks, what was the hardest physical activity you could do for at least 2 minutes?: moderate Can you get to places out of walking distance without help? (For eg., can you travel alone on buses, taxis or drive your car?): Yes Can you go shopping for groceries or clothes without someone's help?: Yes Can you prepare your own meals?: Yes Can you do your housework without help?: Yes Because of any health problems, do you need the help of another person with your personal care needs such as eating, bathing, dressing or getting around the house?: No Can you handle your own money without help?: Yes During the past 4 weeks, how would you rate your health in general?: good During the past 4 weeks how have things been going for you?: good & bad parts about equal Are you having difficulties driving your car?: no Do you always fasten your seat belt when you are in a car?: yes, usually During past 4 weeks, have you been bothered by the following: never: Falling or dizzy when standing up, Trouble eating well?, Teeth or denture problems? and Problems using the telephone?, sometimes: Tiredness or fatigue? and often: Sexual problems? Have you fallen 2 or more times in the past year?: Yes Are you afraid of falling?: No Are you a smoker?: no During the past 4 weeks, how many drinks of wine, beer, or other alcoholic beverages did you have?: 1 drink or less per week Do you exercise for about 20 minutes 3 or more times a week?: yes, some of the time Have you been given information to help with the following?: yes: Hazards in your house that might hurt you? and yes: Keeping track of your medications? How often do you have trouble taking medicines the way you have been told to take them?: I always take medicine as prescribed How confident are you that you can control & manage most of your health problems?: very confident What is your race?: White Mini Mental State Exam (MMSE) Orientation What is the (year) (season) (date) (day) (month)?: year, season, date, day and month Where are we (state) (county) (town or city) (hospital) (floor)?: state, county, town or city, hospital/clinic and floor Registration Name of 3 unrelated objects clearly and slowly, then ask patient to repeat all 3 of them. (1st repeat determines score. Make sure they can repeat all three): object 1, object 2 and object 3 Attention & Calculation (CHOOSE ONE) Ask pt to begin with 100 & count backward by 7. Stop after 5 repeats. If pt cannot ask them to spell the word WORLD backward.: 93, 86, 79, 72 and 65 Spell WORLD backwards (DLROW): 5 letters Recall Ask patient to repeat the 3 items from question #3.: object 1, object 2 and object 3 Language Show patient a wristwatch & ask what it is. Repeat for pencil.: watch and pencil Ask the patient to repeat the phrase 'No ifs, ands, or buts' after you.: correct Ask the patient to 'take a piece of paper with their right hand' 'fold paper in half' 'place paper on floor': take paper in right hand, fold paper in half and place paper on floor Print the sentence 'CLOSE YOUR EYES' on a piece. If patient actually closes eyes then score.: followed written direction Give patient a blank piece of paper & ask to write a sentence. Score if it contains a noun & verb.: sentence contains subject and verb Ask patient to copy figure of intersecting pentagons exactly. Score if all 10 angles & 2 intersects are included.: all 10 angles present & 2 are intersected Score Score: 35 Activity of Daily Living Bathing - sponge bath, tub bath or shower: receives no assistance (gets in/out by self, if usual bathing means Dressing - getting clothes from closets & drawers, including inner/outer garments & fasteners.: gets clothes & gets completely dressed without help Toileting - going to the 'toilet room' for urine/bowel elimination & cleaning self/arranging clothes: goes to toilet room, cleans self, arranges clothes without help Transfer: moves in & out of bed and chair without help (may use support object) Continence: controls urination/bowel movements completely by self Feeding: feeds self without help Total Score: 0 Information obtained from: patient Using telephone: independent Traveling: independent Shopping: independent Preparing meals: independent Housework: independent Taking medicine: independent Managing money: independent PHQ-9 Over the last 2 weeks, how often have you been bothered by any of the following problems? 1. Little interest or pleasure in doing things: several days 2. Feeling down, depressed, or hopeless: not at all 3. Trouble falling or staying asleep, or sleeping too much: not at all 4. Feeling tired or having little energy: several days 5. Poor appetite or overeating: not at all 6. Feeling bad about yourself - or that you are a failure or have let yourself or your family down: not at all 7. Trouble concentrating on things, such as reading the newspaper or watching television: not at all 8. Moving or speaking so slowly that other people could have noticed. Or the opposite - being so fidgety or restless that you have been moving around a lot more than usual: not at all 9. Thoughts that you would be better off or of hurting yourself in some way: not at all Total score: 2 Depression Screening Interpretation: Negative Depression Screening Done: Yes 04764 - PHQ-9 Billing: Yes Source: Developed by Drs. Antonio Quiles, Cecelia Campos, Collin Monroy and colleagues, with an educational devin from [employer]. Review of Systems Const Details: - Musculoskeletal: Reports borderline psoriatic arthritis. - Psychiatric: Reports stress related to PTSD when triggered. - Genitourinary: Denies urinary incontinence. All systems reviewed & are unremarkable except as noted in HPI and below Physical Exam Exam Exam: Appearance: Alert. Oriented X3. No acute distress. Head: Normal external exam. Normocephalic. Atraumatic. Eyes: Pupils are equal, round, and reactive to light. Extraocular movements intact. Conjunctiva and sclera normal. Eyelids normal. Ears: External auditory canal normal. Tympanic membranes normal. Throat: Pharynx normal. Uvula midline. Moist mucous membranes. Neck: Normal inspection. Neck supple. Full range of motion. No adenopathy. Thyroid Normal. No meningeal signs. No neck mass noted. Cardiovascular: Normal heart rate and rhythm. Heart sound normal. No murmurs noted. Pulses normal throughout. Respiratory: No respiratory distress. Painless inspiration. Breath sounds normal. No wheezes/rales/rhonchi noted. Chest nontender. No accessory muscle usage noted or decreased air movement noted. Abdomen: Soft and nontender. Bowel sounds normal in all 4 quadrants. No distention noted. No organomegaly noted. No visible injury noted. Back: No costovertebral angle tenderness. Full range of motion noted. Skin: Skin warm and dry. Normal skin color. Normal skin turgor. No rashes/lesions/lacerations noted. Extremities: No lower extremity edema. Extremities exhibit normal range of motion. Extremities nontender. Neuro: Oriented X 3. No motor deficit. No sensory deficit. Reflexes normal. Passed mini mental exam, including counting backwards by 7s, spelling world backwards, and recalling words. Passed whisper test and balance test. Vital Signs: Last Vital Signs Temp 97.8 F 11/19/24 11:40 Pulse 78 11/19/24 11:40 Resp 14 11/19/24 11:40 BP 139/65 11/19/24 11:40 Pulse Ox 98 11/19/24 11:40 Oxygen Delivery Method Room Air 11/19/24 11:40 BMI result Body Mass Index 28.0 HEENT Other: Hearing screening Whisper test- normal hearing whisper test Eyes Other: vision screening- 20/20 corrected Other: urinary incontinence? no Neuro Other: balance- normal test Romberg- normal test tandem walk test- normal test walk-in turned test- normal test rise from sit to stand- normal test Assessment & Plan Assessment & Plan (1) Annual wellness visit: Code(s): Z00.00 - Encounter for general adult medical examination without abnormal fi ndings Plan: The patient attended the visit for routine health maintenance and preventative care. (2) PTSD (post-traumatic stress disorder): Code(s): F43.10 - Post-traumatic stress disorder, unspecified Plan: The patient reports ongoing stress related to PTSD, which is triggered by certain events. He is not currently seeing a psychiatrist or therapist for this condition. (3) Psoriatic arthritis: Code(s): L40.50 - Arthropathic psoriasis, unspecified Plan: The patient has been diagnosed with borderline psoriatic arthritis by a tailing machine operator at the [facility]. The inside steward/stewardess recommended starting Tremfya, but the patient is concerned about potential side effects, including injection site inflammation and cardiovascular risks. Plan Plan Patient was informed and verbally consented to the use of an ambient scribe for clinic note documentation during this visit. 1. Psoriatic Arthritis The patient has been diagnosed with borderline psoriatic arthritis by a tailing machine operator at the [facility]. The inside steward/stewardess recommended starting Tremfya, but the patient is concerned about potential side effects, including injection site inflammation and cardiovascular risks. 2. Post-Traumatic Stress Disorder (Ptsd) The patient reports ongoing stress related to PTSD, which is triggered by certain events. He is not currently seeing a psychiatrist or therapist for this condition. 3. Preventative Care: Annual Wellness Visit The patient attended the visit for routine health maintenance and preventative care. During the visit, we discussed the patient's concern about the side effects of Tremfya for psoriatic arthritis, including injection site inflammation and cardiovascular risks. We also addressed the patient's ongoing stress related to PTSD and the lack of current psychiatric care. [facility] Patient Instructions: - [facility]atic [facility] and PTSD. - Contact the billing department for clarification on copay discrepancies. - Schedule a six-month follow-up appointment for routine care. Quality Reporting (2019) Depression/Bipolar (159/160/161/177) PHQ-9: Total score: 2 Coding Level of Care Code Medicare Subsequent (G0439) Est Pt Level 4 (87463) Diagnoses Annual wellness visit Z00.00 PTSD (post-traumatic stress disorder) F43.10 Psoriatic arthritis L40.50 CPT Codes Advance Care Planning - Time spent: 1-15 minutes, on File ([id number]) Additional Codes PHQ-9 - 72655 - PHQ-9 Billing: Yes ([id number]) Time Spent (min) 50 Advance Care Planning Advance Care Planning discussion: Exists, not on file Forms completed: Health Care Proxy Time spent: 1-15 minutes, on File Actual minutes spent: 15 Did not discuss due to Cultural/Spiritual beliefs: No
[2024-11-19 11:40] VITALS: BP 139/65; PULSE 78; RESP 14; TEMP 36.6; O2SAT 98; BMI 28.0
== END 2024-11-19 12:04 | disposition home or self-care (01) ==
LOC: HO.HMCSH 11:24
PROVIDERS: PCP Internal Medicine; Visit Provider Physician Assistant Medical
DX: Z00.00 Encounter for general adult medical examination without abnormal findings (principal); F43.10 Post-traumatic stress disorder, unspecified; L40.50 Arthropathic psoriasis, unspecified

== ENCOUNTER → 2024-11-19 11:24 | Outpatient (BNVA) | payer MEDICARE, SELFPAY | PROVIDERS: PCP Internal Medicine; Visit Provider Physician Assistant Medical | DX: Z00.00 Encounter for general adult medical examination without abnormal findings (principal); L40.50 Arthropathic psoriasis, unspecified; F43.10 Post-traumatic stress disorder, unspecified | CPT/HCPCS: 96127; 99212 ==

== ENCOUNTER 2024-12-23 12:49 | Outpatient (AMB) | payer OTHER, SELFPAY ==
[2024-12-23 13:25] VITALS: BP 122/60; PULSE 70; BMI 26.9
--- NOTE | 2024-12-23 13:25 | MHC.OFFVIS ---
Vital Signs 12/23/24 13:25 Height 5 ft 8 in Weight 177 lb 2 oz BMI 26.9 BP 122/60 Blood Pressure Location Lt brachial Position Sitting Pulse 70 Pulse Source Monitor Intake Visit Reasons: 6mth and device check Front Line Supervisor Required: No Allergies lisinopril Allergy (Unknown, Verified 12/23/24 13:28) cough oxycodone Allergy (Unknown, Verified 12/23/24 13:28) urticaria Medication List - Last Reconciled 12/23/24 by Janette Combs, INEZ-C amlodipine 5 mg PO DAILY ascorbic acid (vitamin C) mg PO aspirin (Adult Low Dose Aspirin) 81 mg PO DAILY atorvastatin 80 mg PO BEDTIME docusate sodium (Colace) 100 mg PO DAILY empagliflozin (Jardiance) 10 mg PO DAILY finasteride 5 mg PO DAILY levothyroxine 50 mcg PO DAILY losartan 100 mg PO DAILY metformin 1,000 mg PO BID tamsulosin 0.4 mg PO DAILY vitamins A,C,E-rdgv-rmihka 4,296 mcg-226 mg-90 mg (PreserVision AREDS) 1 cap PO BID PFSH Medical History PTSD (post-traumatic stress disorder) Annual wellness visit SARAI on CPAP Hypothyroidism HLD (hyperlipidemia) HTN (hypertension) Diabetes Diverticulosis Lyme carditis Tubular adenoma Diabetic nephropathy Osteoarthritis Psoriasis Psoriatic arthritis Hypothyroidism Type 2 diabetes mellitus with hemoglobin A1c goal of less than 7.0% Pure hypercholesterolemia, unspecified Establishing care with new doctor, encounter for Surgical History History of toe surgery Pacemaker Hx of colonoscopy (~10/01/18) Family History Mother Lung cancer Father Brain aneurysm Brother Prostate cancer Sister Diabetes Social History Housing: House Do you presently have visiting nurse or other home services: No Alcohol intake: current Alcohol intake frequency: a few times a week Patient Tobacco Use Status: Former Tobacco user Years Smoked: 20+ e-Cigarette/Vaping Use: Former Use service: No Current occupational status: retired Cognitive needs: No Hearing needs: No Vision needs: Yes (rx glasses) Review of Systems Const All systems reviewed & are unremarkable except as noted in HPI and below ENT Denies dizziness Card Denies chest pain, Denies chest pain at rest, Denies chest pain with activity, Denies rapid heart rate, Denies pedal edema, Denies edema, Denies leg edema, Denies lightheadedness, Denies palpitations, Denies dyspnea, Denies dyspnea on exertion and Denies orthopnea Resp Denies cough, Denies dyspnea and Denies dyspnea on exertion GI Denies hematochezia and Denies change in stool character Musc Denies abnormal gait, Denies limited range of motion, Denies muscle cramps, Denies muscle weakness, Denies numbness, Denies radiating pain into limb, Denies stiffness and Denies tingling Neuro Denies abnormal gait, Denies dizziness, Denies numbness and Denies tingling Endo Denies palpitations Physical Exam Vital Signs: Last Vital Signs Pulse 70 12/23/24 13:25 BP 122/60 12/23/24 13:25 BMI result Body Mass Index 26.9 Const General: cooperative, healthy appearing, comfortable and no acute distress Orientation/consciousness: patient oriented x3 Neck Neck: Yes normal visual inspection and Yes no JVD Chest Other: Pacemaker site left upper chest benign Resp Effort & Inspection: normal respiratory effort Auscultation: clear to auscultation bilaterally, no rales, no rhonchi and no wheezes Cardio Rate: regular rate Rhythm: regular rhythm Heart sounds: S1 normal heart sound present, S2 normal heart sound present, no gallops, no murmurs and no rubs Neuro General: patient oriented x3 Extrem General: Yes normal to inspection, No no pedal edema and No calf tenderness Psych Appearance: grossly normal Mental Status: mental status grossly normal Speech and movement: Normal speech and movement present Office Procedures Cardiac Device Check Cardiac Device Check Details: [employer] dual-chamber pacemaker interrogation today, battery 1 year, DDD mode, low rate 60, atrial paced 39%, ventricular paced 100%, 0% AT/AF, atrial threshold 0.5 volts at 0.4 milliseconds, RV threshold is 1 volt at 0.4 millisecond PMT episodes not true, av search 300 milliseconds added to help limit amount of RV pacing, per rep he is not pacemaker dependent. 67512-MW Cardiac Device Check, pacemaker dual lead Procedure code (CPT) selection complete EKG Details: Today, read by me, normal sinus rhythm, left axis deviation, right bundle branch block, rate 62, QTC 385 milliseconds [id number], Complete Assessment & Plan Assessment & Plan (1) CHB (complete heart block): Comment: He is status post permanent pacemaker placement. Code(s): I44.2 - Atrioventricular block, complete Category: Medical Plan: History of complete heart block status post placement of dual-chamber pacemaker on 04/08/2019. Condition stable and pacemaker functioning normally. (2) Pacemaker: Comment: [employer] dual-chamber pacemaker Code(s): Z95.0 - Presence of cardiac pacemaker Category: Medical Plan: Interrogation today shows device is functioning normally. AV search added to limit amount of V pacing. Currently V pacing 100%. Last echocardiogram 10/04/2023 showed EF 55-60%, no regional wall motion abnormalities, ascending aorta 3.8 cm. No clinical signs of heart failure. - continue with remote monitoring. Office interrogation 6 months from now. (3) RBBB: Code(s): I45.10 - Unspecified right bundle-branch block Category: Medical Plan: EKG today showing sinus rhythm with right bundle branch block.-- EKG was taken after pacemaker adjustment as stated above. Right bundle branch block is not new for him. (4) Hypertension: Comment: Stable Code(s): I10 - Essential (primary) hypertension Category: Medical Qualifiers: Hypertension type: essential hypertension Qualified Code(s): I10 - Essential (primary) hypertension Plan: Blood pressure goal less than 130/80, well controlled at this time. Labs 12/19/2024 showed potassium 4.9, labs 08/15/2024 showed creatinine 0.99. Continue amlodipine and losartan. (5) Pure hypercholesterolemia, unspecified: Code(s): E78.00 - Pure hypercholesterolemia, unspecified Category: Medical Plan: [place] LDL goal less than 70 in patient with diabetes. Labs done 12/19/2024 showed LDL 47. Continue atorvastatin. Plan During the visit, we discussed the patient's stable management of hypertension and the functioning of his pacemaker. We reviewed the plan for a generator change in about a year, with a follow-up in six months to assess battery life. The patient is aware of the signs of Lyme disease following a recent tick bite and will monitor accordingly. Patient Instructions: - Continue monitoring of blood pressure and report any significant changes. - Discuss Tick bite with PCP. - Follow up in six months to assess pacemaker battery life and function Patient was informed and verbally consented to the use of an ambient scribe for clinic note documentation during this visit. Visit time spent on chart review, interview, assessment, orders, documentation. Coding Level of Care Code Est Pt Level 4 (65359) Complex EM visit Add On G2211 Diagnoses CHB (complete heart block) I44.2 Pacemaker Z95.0 RBBB I45.10 Essential hypertension I10 Hypertension type: essential hypertension Pure hypercholesterolemia, unspecified E78.00 CPT Codes Cardiac Device Check - Cardiac Device 2: [id number]-SS Cardiac Device Check, pacemaker dual lead ([id number]) EKG - CPT: 63828-[id number], Complete ([id number]) Time Spent (min) 30
== END 2024-12-23 14:07 | disposition home or self-care (01) ==
PROVIDERS: PCP Internal Medicine; Visit Provider Nurse Practitioner Family
DX: I44.2 Atrioventricular block, complete (principal); Z95.0 Presence of cardiac pacemaker; I45.10 Unspecified right bundle-branch block; I10 Essential (primary) hypertension; E78.00 Pure hypercholesterolemia, unspecified
CPT/HCPCS: 93010; 93280; 99214; G2211

== ENCOUNTER → 2024-12-23 12:49 | Outpatient (BNVA) | payer OTHER, MEDICARE, SELFPAY | PROVIDERS: PCP Internal Medicine; Visit Provider Nurse Practitioner Family | DX: I44.2 Atrioventricular block, complete (principal); E78.00 Pure hypercholesterolemia, unspecified; Z95.0 Presence of cardiac pacemaker | CPT/HCPCS: 93005; 93280; 99212 ==

== ENCOUNTER → 2025-01-09 23:59 | Outpatient (BNV) | payer OTHER, MEDICARE, SELFPAY ==
--- NOTE | 2025-01-17 21:34 | MHC.OFFVIS ---
Intake Visit Reasons: Remote device check- [employer] Allergies lisinopril Allergy (Unknown, Verified 12/23/24 13:28) cough oxycodone Allergy (Unknown, Verified 12/23/24 13:28) urticaria PFSH Medical History PTSD (post-traumatic stress disorder) Annual wellness visit [facility] on CPAP Hypothyroidism HLD (hyperlipidemia) HTN (hypertension) Diabetes Diverticulosis Lyme carditis Tubular adenoma Diabetic nephropathy Osteoarthritis Psoriasis Psoriatic arthritis Hypothyroidism Type 2 diabetes mellitus with hemoglobin A1c goal of less than 7.0% Pure hypercholesterolemia, unspecified Establishing care with new doctor, encounter for Surgical History History of toe surgery Pacemaker Hx of colonoscopy (~10/01/18) Family History Mother Lung cancer Father Brain aneurysm Brother Prostate cancer Sister Diabetes Social History Housing: House Do you presently have visiting nurse or other home services: No Alcohol intake: current Alcohol intake frequency: a few times a week Patient Tobacco Use Status: Former Tobacco user Years Smoked: 20+ e-Cigarette/Vaping Use: Former Use service: No Current occupational status: retired Cognitive needs: No Hearing needs: No Vision needs: Yes (rx glasses) Office Procedures Cardiac Device Check Cardiac Device Check Details: PPM-[employer] Battery life 1.5 years. 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 [id number] Cardiac Device Interrogation, pacemaker Procedure code (CPT) selection complete Assessment & Plan Assessment & Plan (1) Pacemaker: Comment: [employer] dual-chamber pacemaker Code(s): Z95.0 - Presence of cardiac pacemaker Category: Medical Plan Coding Level of Care Code Procedure Only Diagnoses Pacemaker Z95.0 CPT Codes Cardiac Device Check - Cardiac Device 12: [id number] Cardiac Device Interrogation, pacemaker ([id number])
== END ==
PROVIDERS: PCP Internal Medicine; Visit Provider Internal Medicine Cardiovascular Disease
DX: Z45.018 Encounter for adjustment and management of other part of cardiac pacemaker (principal)
CPT/HCPCS: 93294

== ENCOUNTER → 2025-01-27 19:44 | Outpatient (BNV) | payer OTHER, MEDICARE, SELFPAY | PROVIDERS: PCP Internal Medicine; Visit Provider Internal Medicine Cardiovascular Disease | DX: I44.2 Atrioventricular block, complete (principal); Z95.0 Presence of cardiac pacemaker | CPT/HCPCS: 93294 ==